=== PATIENT | male | born 1960 | race Two or more races ===

== ENCOUNTER 2018-07-15 19:06 | Inpatient (IN) | payer MEDICAID ==
[~2018-07-15] VITALS: Ht 167.6 cm; Wt 89.6 kg
[2018-07-15 19:11] VITALS: BP 124/75
[2018-07-15 19:45] LABS: HEMATOCRIT 22.3 % (42.0-52.0); HEMOGLOBIN 7.3 G/DL (14.2-18.0); MEAN CORPUSCULAR VOLUME 94 FL (80-99); PLATELET COUNT 52 K/UL (150-450); RED BLOOD COUNT 2.38 M/UL (4.70-6.10); RED CELL DISTRIBUTION WIDTH 13.7 % (11.6-14.8); WHITE BLOOD COUNT 15.6 K/UL (4.8-10.8)
[2018-07-15 19:50] LABS: INR 1.6 (0.9-1.1)
[2018-07-15 19:54] LABS: ANION GAP 13 mmol/L (5-15); BLOOD UREA NITROGEN 35 mg/dL (7-18); CARBON DIOXIDE 15 MMOL/L (21-32); CHLORIDE 106 MMOL/L (98-107); CREATININE 3.4 MG/DL (0.55-1.30); POTASSIUM 4.4 MMOL/L (3.5-5.1); SODIUM 134 MMOL/L (136-145)
[2018-07-15 20:04] LABS: ALANINE AMINOTRANSFERASE 32 U/L (12-78); ALBUMIN 1.3 G/DL (3.4-5.0); ALBUMIN/GLOBULIN RATIO 0.2 (1.0-2.7); ALKALINE PHOSPHATASE 120 U/L (46-116); ASPARTATE AMINO TRANSFERASE 105 U/L (15-37); BILIRUBIN,TOTAL 1.1 MG/DL (0.2-1.0); CREATINE KINASE 62 U/L (26-308)
[2018-07-15 20:06] LABS: BILIRUBIN,DIRECT 0.6 MG/DL (0.0-0.3)
[2018-07-15 20:07] LABS: AMMONIA < 10 umol/L (11-32)
--- NOTE | 2018-07-15 20:24 | Diagnostic Imaging Report ---
EXAM: XR Chest, 1 View CLINICAL HISTORY: ABD PAIN TECHNIQUE: Frontal view of the chest. COMPARISON: No relevant prior studies available. FINDINGS: Lungs: Hypoventilatory lungs. No focal consolidation. Pleural space: Unremarkable. No pneumothorax. Heart: Unremarkable. No cardiomegaly. Mediastinum: Unremarkable. Bones/joints: No acute osseous abnormality. IMPRESSION: No acute cardiopulmonary process.
--- NOTE | 2018-07-15 21:19 | Emergency Room Report ---
History of Present Illness General Chief Complaint: Abdominal Pain Source: Patient, EMS Present Illness HPI Patient presents with abdominal distention and discomfort. He has a history of ascites. He was last tapped one month ago. He is unsure where this was done. He denies any fevers or chills. Denies any vomiting or diarrhea. No melena, stools brown. H/O cirrhosis from alcohol. Pain in abdomen 7/10, diffuse, pressure, not radiate, constant. Some swelling in legs. No calf tenderness. No cough, sore throat, headache. Easy bruising. No seizures. No withdrawal symptoms. No dysuria or hematuria. He last drank alcohol earlier this morning. Allergies: Coded Allergies: No Known Allergies (Unverified , 07/15/18) Patient History Past Medical History: see triage record Social History: Reports: alcohol use Social History Narrative from home, born in [place] Reviewed Nursing Documentation: PMH: Agreed; PSxH: Agreed Nursing Documentation-PMH Hx Gastrointestinal Problems: Yes - CIRRHOSIS Review of Systems All Other Systems: negative except mentioned in HPI Physical Exam Vital Signs Date Time Temp Pulse Resp B/P (MAP) Pulse Ox O2 Delivery O2 Flow Rate FiO2 07/15/18 19:07 100.6 100 16 124/75 98 Room Air 100.6 Sp02 EP Interpretation: reviewed, normal General Appearance: alert, GCS 15, Chronically Ill Head: normocephalic Eyes: bilateral eye normal inspection, bilateral eye PERRL ENT: moist mucus membranes Neck: supple Respiratory: lungs clear, normal breath sounds Cardiovascular #1: regular rate, rhythm Cardiovascular #2: 2+ radial (R) Gastrointestinal: normal inspection, normal bowel sounds, soft, no mass, distended, other - fluid wave Genitourinary: no CVA tenderness Musculoskeletal: back normal, gait/station normal, normal range of motion Neurologic: alert, oriented x3, motor strength/tone normal, DTRs symmetric, sensory intact, speech normal Psychiatric: mood/affect normal Skin: warm/dry, other - sallo Medical Decision Making Diagnostic Impression: Primary Impression: Ascites Qualified Codes: K70.31 - Alcoholic cirrhosis of liver with ascites Additional Impressions: Fever Qualified Codes: R50.9 - Fever, unspecified Renal failure Qualified Codes: N17.9 - Acute kidney failure, unspecified Coagulopathy Cirrhosis Qualified Codes: K70.31 - Alcoholic cirrhosis of liver with ascites Anemia Qualified Codes: D64.9 - Anemia, unspecified Thrombocytopenia Alcohol abuse ER Course Patient presents with worsened ascites and fever. DDx: SBP, pneumonia, UTI, other source of infection. Evaluation with EKG, labs and cxr. Will need to have paracentesis if labs acceptable. Pepcid given. EKG no injury. CXR poor inspiration. Labs with anemia, coagulopathy, renal failure, elevated lactate, low bicarb, elevated LFTs. Low platelets. Pyuria. Ammonia nil. Alcohol 162. Type and Rh ordered. Antibiotics begun. Patient states pain resolved. With coagulopathy, consider correction before tap. Consider transfusion, though hemodynamically stable. Admit Dr. Kwame han. Laboratory Tests Test 07/15/18 19:24 07/15/18 21:49 White Blood Count 15.6 K/UL (4.8-10.8) H Red Blood Count 2.38 M/UL (4.70-6.10) L Hemoglobin 7.3 G/DL (14.2-18.0) L Hematocrit 22.3 % (42.0-52.0) L Mean Corpuscular Volume 94 FL (80-99) Mean Corpuscular Hemoglobin 30.9 PG (27.0-31.0) Mean Corpuscular Hemoglobin Concent 32.9 G/DL (32.0-36.0) Red Cell Distribution Width 13.7 % (11.6-14.8) Platelet Count 52 K/UL (150-450) L Mean Platelet Volume 6.2 FL (6.5-10.1) L Neutrophils (%) (Auto) % (45.0-75.0) Lymphocytes (%) (Auto) % (20.0-45.0) Monocytes (%) (Auto) % (1.0-10.0) Eosinophils (%) (Auto) % (0.0-3.0) Basophils (%) (Auto) % (0.0-2.0) Differential Total Cells Counted 100 Neutrophils % (Manual) 82 % (45-75) H Lymphocytes % (Manual) 15 % (20-45) L Monocytes % (Manual) 3 % (1-10) Eosinophils % (Manual) 0 % (0-3) Basophils % (Manual) 0 % (0-2) Band Neutrophils 0 % (0-8) Platelet Estimate Decreased L Platelet Morphology Normal Hypochromasia 1+ Prothrombin Time 16.1 SEC (9.30-11.50) H Prothrombin Time INR 1.6 (0.9-1.1) H PTT 38 SEC (23-33) H Sodium Level 134 MMOL/L (136-145) L Potassium Level 4.4 MMOL/L (3.5-5.1) Chloride Level 106 MMOL/L (98-107) Carbon Dioxide Level 15 MMOL/L (21-32) L Anion Gap 13 mmol/L (5-15) Blood Urea Nitrogen 35 mg/dL (7-18) H Creatinine 3.4 MG/DL (0.55-1.30) H Estimate Glomerular Filtration Rate 18.8 mL/min (>60) Glucose Level 109 MG/DL (74-106) H Lactic Acid Level 2.40 mmol/L (0.4-2.0) H Calcium Level 8.0 MG/DL (8.5-10.1) L Total Bilirubin 1.1 MG/DL (0.2-1.0) H Direct Bilirubin 0.6 MG/DL (0.0-0.3) H Aspartate Amino Transferase (AST) 105 U/L (15-37) H Alanine Aminotransferase (ALT) 32 U/L (12-78) Alkaline Phosphatase 120 U/L (46-116) H Ammonia < 10 umol/L (11-32) L Total Creatine Kinase 62 U/L (26-308) Troponin I 0.013 ng/mL (0.000-0.056) Total Protein 7.7 G/DL (6.4-8.2) Albumin 1.3 G/DL (3.4-5.0) L Globulin 6.4 g/dL Albumin/Globulin Ratio 0.2 (1.0-2.7) L Lipase 135 U/L (73-393) Serum Alcohol 162 mg/dL Urine Color Red Urine Appearance Turbid Urine pH 6.5 (4.5-8.0) Urine Specific [place] 1.015 (1.005-1.035) Urine Protein 4+ (NEGATIVE) H Urine Glucose (UA) Negative (NEGATIVE) Urine Ketones 1+ (NEGATIVE) H Urine Blood 5+ (NEGATIVE) H Urine Nitrite Negative (NEGATIVE) Urine Bilirubin Negative (NEGATIVE) Urine Urobilinogen Normal MG/DL (0.0-1.0) Urine Leukocyte Esterase 3+ (NEGATIVE) H Urine RBC Tntc /HPF (0 - 0) H Urine WBC 15-20 /HPF (0 - 0) H Urine Squamous Epithelial Cells Occasional /LPF Urine Bacteria Moderate /HPF (NONE) H Urine Opiates Screen Negative (NEGATIVE) Urine Barbiturates Screen Negative (NEGATIVE) Phencyclidine (PCP) Screen Negative (NEGATIVE) Urine Amphetamines Screen Negative (NEGATIVE) Urine Benzodiazepines Screen Negative (NEGATIVE) Urine Cocaine Screen Negative (NEGATIVE) Urine Marijuana (THC) Screen Negative (NEGATIVE) EKG Diagnostic Results Rate: normal Rhythm: NSR ST Segments: no acute changes Rhythm Strip Diag. Results EP Interpretation: yes Rhythm: NSR, no PVC's, no ectopy Chest X-Ray Diagnostic Results Chest X-Ray Diagnostic Results : Chest X-Ray Ordered: Yes # of Views/Limited/Complete: 1 View Indication: Other EP Interpretation: Yes Interpretation: no effusion, no pneumothorax, other - atelectasis Impression: Other Electronically Signed by: Electronically signed by Cory Zarate MD Last Vital Signs Date Time Temp Pulse Resp B/P (MAP) Pulse Ox O2 Delivery O2 Flow Rate FiO2 07/15/18 22:25 Room Air 07/15/18 19:11 100.6 16 124/75 98 100.6 07/15/18 19:07 100 Status: improved Disposition: ADMITTED INPATIENT Condition: Serious Referrals: NOT CHOSEN KEN/,REFERRING (PCP) Cory Zarate M.D. Jul 15, 2018 21:19
[2018-07-15] MEDS ORDERED: Cefepime HCl 1 GM in D5W 55 ML IVPB ONE (21:30)
[2018-07-15] MEDS ORDERED: Phytonadione 10 mg/mL 1ml amp SUBQ ONE (21:45)
[2018-07-15 22:03] LABS: APPEARANCE,URINE TURBID; BILIRUBIN, URINE NEGATIVE (NEGATIVE); GLUCOSE, URINE (UA) NEGATIVE (NEGATIVE); KETONES,URINE 1+ (NEGATIVE); LEUKOCYTE ESTERASE ,URINE 3+ (NEGATIVE); NITRITE,URINE NEGATIVE (NEGATIVE); PH,URINE 6.5 (4.5-8.0); PROTEIN,URINE 4+ (NEGATIVE); UROBILINOGEN,URINE NORMAL MG/DL (0.0-1.0)
[2018-07-15 22:08] LABS: COLOR,URINE RED
[2018-07-15] MEDS ORDERED: Acetaminophen 650 MG SUPP RECTAL PRN ×2 (22:15)
[2018-07-15] MEDS ORDERED: LORazepam Inj 2mg/ml 1ml IV PRN (22:15)
[2018-07-16] VITALS (10 sets, daily range): BP systolic 110–142; BP diastolic 54–85
[2018-07-16 07:58] LABS: INR 1.7 (0.9-1.1)
[2018-07-16 08:28] LABS: AMMONIA 62 umol/L (11-32)
[2018-07-16 08:30] LABS: ALANINE AMINOTRANSFERASE 22 U/L (12-78); ALBUMIN 0.9 G/DL (3.4-5.0); ALBUMIN/GLOBULIN RATIO 0.2 (1.0-2.7); ALKALINE PHOSPHATASE 76 U/L (46-116); AMYLASE 31 U/L (25-115); ANION GAP 13 mmol/L (5-15); ASPARTATE AMINO TRANSFERASE 71 U/L (15-37); BLOOD UREA NITROGEN 38 mg/dL (7-18); CALCIUM 7.5 MG/DL (8.5-10.1); CARBON DIOXIDE 14 MMOL/L (21-32); CHLORIDE 109 MMOL/L (98-107); CREATININE 3.5 MG/DL (0.55-1.30); POTASSIUM 4.9 MMOL/L (3.5-5.1); SODIUM 136 MMOL/L (136-145)
[2018-07-16] MEDS ORDERED: Pantoprazole Inj IV SCH ×2 (09:00→21:00)
[2018-07-16] MEDS ORDERED: Thiamine 100mg tab ORAL SCH (09:00)
[2018-07-16 09:28] LABS: HEMATOCRIT 18.6 % (42.0-52.0); MEAN CORPUSCULAR VOLUME 92 FL (80-99); PLATELET COUNT 27 K/UL (150-450); RED BLOOD COUNT 2.02 M/UL (4.70-6.10); RED CELL DISTRIBUTION WIDTH 13.6 % (11.6-14.8)
[2018-07-16 09:29] LABS: HEMOGLOBIN 5.9 G/DL (14.2-18.0)
[2018-07-16] MEDS ORDERED: Phytonadione 10 MG in D5W 55 ML IVPB ONE (10:00)
[2018-07-16] MEDS ORDERED: Sodium Bicarbonate 150 ML in D5W 1000ml 1,000 ML IV SCH ×5 (14:30→20:00)
[2018-07-16] MEDS: LORazepam Inj 2mg/ml 1ml IV SCH ×2 (14:41→18:09)
[2018-07-16] MEDS ORDERED: Acetaminophen 650 MG SUPP RECTAL PRN ×2 (20:03)
[2018-07-16] MEDS ORDERED: LORazepam Inj 2mg/ml 1ml IV PRN (20:04)
[2018-07-16] MEDS ORDERED: Cefepime HCl 1 GM in D5W 55 ML IVPB SCH (22:00)
[2018-07-16] MEDS: Cefepime HCl 1 GM in D5W 55 ML IVPB SCH (22:45)
[2018-07-16] MEDS: Pantoprazole Inj IV SCH (22:45)
[2018-07-17] VITALS: BP 143/91
[2018-07-17] MEDS: LORazepam Inj 2mg/ml 1ml IV SCH ×4 (00:29→17:59)
--- NOTE | 2018-07-17 00:45 | History and Physical Report ---
DATE OF ADMISSION: 07/15/2018 CHIEF COMPLAINT/REASON FOR HOSPITALIZATION: The patient with ascites, sepsis, and cirrhosis. HISTORY OF PRESENT ILLNESS: The patient is a heavy drinker, has had ascites, tapped about a month ago, presents with increasing ascites and abdominal pain. He is a poor historian. He has elevated alcohol level and he has been drinking lately beer. ALLERGIES: None known. PAST SURGICAL HISTORY: None. HABITS: He is a cigarette smoker and yjacmrgf-[id number] alcohol drinker. No drugs. REVIEW OF SYSTEMS: HEENT: Vision and hearing are good. ENDOCRINE: No known diabetes or thyroid disease. PULMONARY: No asthma or TB. CARDIAC: No angina or AL. GASTROINTESTINAL: See above. He may have had rectal bleeding, he is not sure. GENITOURINARY: He voids okay. He states he may have some chronic kidney problem. NEUROLOGIC: No seizures or CVA. PHYSICAL EXAMINATION: GENERAL: The patient is alert man, having some tremors and possible rigors. VITAL SIGNS: Temperature 100.7 degrees, pulse of 92, respirations 18, and blood pressure 127/68. HEENT: Oral mucosa is slightly dry. The sclerae are nonicteric. NECK: No adenopathy. LUNGS: Clear. HEART: Regular rhythm. Tachycardic. ABDOMEN: Shows moderate severe ascites and no focal tenderness. GENITOURINARY: Penis and testes normal. EXTREMITIES: Showed trace to 1+ edema. NEUROLOGIC: He is alert, responsive, and answers questions. No focal findings. There is some moderate tremor. LABORATORY AND DIAGNOSTIC DATA: Pertinent labs showed BUN 38, creatinine 3.5, and CO2 is 14. The ammonia is 62. Blood cultures showed Gram-negative rods. Repeat hemoglobin 5.9, hematocrit 18.6, and white count 10,000. Urine shows 15 to 20 white cells per high power field. IMPRESSION: 1. Cirrhosis with ascites. 2. Sepsis with Gram-negative rods, possible UTI, possible spontaneous bacterial peritonitis. 3. Kidney failure, possible acute kidney failure versus chronic, possibly secondary to sepsis. 4. Acidosis. 5. Severe anemia, possible GI bleed. No stools have been collected yet. PLAN: Orders have been given for all the above problems. He wishes DNR. Condition is very serious. Ed Puente M.D. DR: HEVER JOB#: [id number] CC:
[2018-07-17 04:00] VITALS: BP 114/77
[2018-07-17 05:38] LABS: HEMATOCRIT 25.6 % (42.0-52.0); HEMOGLOBIN 8.7 G/DL (14.2-18.0); MEAN CORPUSCULAR VOLUME 89 FL (80-99); PLATELET COUNT 38 K/UL (150-450); RED BLOOD COUNT 2.87 M/UL (4.70-6.10); RED CELL DISTRIBUTION WIDTH 13.7 % (11.6-14.8); WHITE BLOOD COUNT 7.6 K/UL (4.8-10.8)
[2018-07-17 05:48] LABS: INR 1.8 (0.9-1.1)
[2018-07-17 06:05] LABS: ALANINE AMINOTRANSFERASE 17 U/L (12-78); ALBUMIN/GLOBULIN RATIO 0.2 (1.0-2.7); ALKALINE PHOSPHATASE 73 U/L (46-116); ANION GAP 10 mmol/L (5-15); ASPARTATE AMINO TRANSFERASE 67 U/L (15-37); BILIRUBIN,TOTAL 2.3 MG/DL (0.2-1.0); BLOOD UREA NITROGEN 46 mg/dL (7-18); CALCIUM 7.4 MG/DL (8.5-10.1); CARBON DIOXIDE 17 MMOL/L (21-32); CHLORIDE 109 MMOL/L (98-107); CREATININE 4.2 MG/DL (0.55-1.30); POTASSIUM 4.7 MMOL/L (3.5-5.1); SODIUM 136 MMOL/L (136-145)
[2018-07-17 06:15] LABS: BILIRUBIN,DIRECT 1.1 MG/DL (0.0-0.3)
[2018-07-17 08:00] VITALS: BP 128/75
[2018-07-17] MEDS: Thiamine 100mg tab ORAL SCH (09:19)
[2018-07-17] MEDS: Pantoprazole Inj IV SCH ×2 (09:19→21:13)
--- NOTE | 2018-07-17 09:31 | Cardiology Report ---
APPROVED REPORT EKG Measurement Heart [id number] Normal sinus rhythm Septal infarct, age undetermined Abnormal ECG
[2018-07-17 12:00] VITALS: BP 113/68
--- NOTE | 2018-07-17 12:07 | General Progress Note ---
Assessment/Plan Assessment/Plan Assessment - EtOH cirrhosis - Ascites - Coagulopathy - encephalopathy - Renal failure Recommendations - abx - lactulose - diagnostic paracentesis - albumin - Trental - IVF - Follow labs Subjective Allergies: Coded Allergies: No Known Allergies (Unverified , 07/15/18) Objective Last 24 Hour Vital Signs Date Time Temp Pulse Resp B/P (MAP) Pulse Ox O2 Delivery O2 Flow Rate FiO2 07/17/18 09:00 Room Air 07/17/18 08:00 98.1 75 18 128/75 (92) 100 98.1 07/17/18 08:00 76 07/17/18 04:00 98.5 70 20 114/77 (89) 99 98.5 07/17/18 00:00 98.2 78 20 143/91 (108) 100 98.2 07/17/18 00:00 87 07/16/18 21:00 Room Air 07/16/18 20:00 98.2 84 20 140/85 (103) 100 98.2 07/16/18 20:00 82 07/16/18 19:00 98.2 84 20 142/85 (104) 100 98.2 07/16/18 17:20 98.3 88 20 123/81 (95) 98 98.3 07/16/18 16:50 98.4 96 20 121/80 (94) 98 98.4 07/16/18 16:35 98.7 102 20 118/81 (93) 98 98.7 07/16/18 16:00 98.9 104 20 117/80 (92) 99 98.9 07/16/18 13:50 100.2 07/16/18 12:51 100.7 Intake and Output 07/16/18 07/17/18 19:00 07:00 Intake Total 360 ml 589.1 ml Balance 360 ml 589.1 ml Intake Oral 360 ml 240 ml IV Total 349.1 ml # Voids 3 2 # Bowel Movements 1 Laboratory Tests 07/17/18 04:13: White Blood Count 7.6, Red Blood Count 2.87L, Hemoglobin 8.7#L, Hematocrit 25.6# L, Mean Corpuscular Volume 89, Mean Corpuscular Hemoglobin 30.3, Mean Corpuscular Hemoglobin Concent 34.0, Red Cell Distribution Width 13.7, Platelet Count 38L, Mean Platelet Volume 7.2, Neutrophils (%) (Auto) , Lymphocytes (%) ( Auto) , Monocytes (%) (Auto) , Eosinophils (%) (Auto) , Basophils (%) (Auto) , Differential Total Cells Counted 100, Neutrophils % (Manual) 90H, Lymphocytes % (Manual) 3L, Monocytes % (Manual) 5, Eosinophils % (Manual) 0, Basophils % ( Manual) 0, Band Neutrophils 2, Nucleated Red Blood Cells 1, Platelet Estimate DecreasedL, Platelet Morphology Normal, Anisocytosis 1+, Prothrombin Time 18.5H , Prothromb Time International Ratio 1.8H, Activated Partial Thromboplast Time 45H, Sodium Level 136, Potassium Level 4.7, Chloride Level 109H, Carbon Dioxide Level 17L, Anion Gap 10, Blood Urea Nitrogen 46H, Creatinine 4.2H, Estimat Glomerular Filtration Rate 14.8, Glucose Level 97, Calcium Level 7.4L, Total Bilirubin 2.3H, Direct Bilirubin 1.1H, Aspartate Amino Transf (AST/SGOT) 67H, Alanine Aminotransferase (ALT/SGPT) 17, Alkaline Phosphatase 73, Total Protein 5.6L, Albumin 1.0L, Globulin 4.6, Albumin/Globulin Ratio 0.2L Height (Feet): 5 Height (Inches): 6.00 Weight (Pounds): 160 Armando Junior MD Jul 17, 2018 12:07
[2018-07-17] MEDS ORDERED: D5 1/2NS 1,000 ML IV SCH (12:15)
[2018-07-17] MEDS: Lactulose 20gm/30ml UDC ORAL SCH ×2 (14:24→17:58)
[2018-07-17 15:58] VITALS: BP 126/79
--- NOTE | 2018-07-17 17:05 | Diagnostic Imaging Report ---
Indication: Alcohol cirrhosis. Elevated liver function tests and abdominal distention Technique: Grayscale and duplex Doppler imaging of the abdomen performed. Comparison: None Findings: There is a moderate degree of ascites present. There is nodularity of the liver surface demonstrated. The retroperitoneum structures including the pancreas, portions of the kidneys, abdominal aorta are not seen well on this study. There is evidence of a recanalized umbilical vein. Multiple gallstones are present. The spleen is enlarged measuring 15 cm. There is no hydronephrosis. There are cysts within the left kidney. The main portal vein is patent by Doppler examination. Gallstones noted. IMPRESSION: Chronic liver disease/cirrhosis with stigmata of portal hypertension including moderate ascites and splenomegaly, recanalized umbilical vein. Gallstones Multiple cysts within the left kidney. Portions of anatomy not well seen
--- NOTE | 2018-07-17 19:22 | General Progress Note ---
Assessment/Plan Problem List: (1) Pyelonephritis ICD Codes: N12 - Tubulo-interstitial nephritis, not specified as acute or chronic SNOMED: 85387737 (2) Alcohol withdrawal ICD Codes: F10.239 - Alcohol dependence with withdrawal, unspecified SNOMED: 827902418 (3) JARED (acute kidney injury) ICD Codes: N17.9 - Acute kidney failure, unspecified SNOMED: 54823863 (4) Cirrhosis ICD Codes: K74.60 - Unspecified cirrhosis of liver SNOMED: 66969656 Qualifiers: Qualified Codes: K70.31 - Alcoholic cirrhosis of liver with ascites (5) Alcohol abuse ICD Codes: F10.10 - Alcohol abuse, uncomplicated SNOMED: 11580425 (6) Thrombocytopenia ICD Codes: D69.6 - Thrombocytopenia, unspecified SNOMED: 425566283 (7) Anemia ICD Codes: D64.9 - Anemia, unspecified SNOMED: 634453095 Qualifiers: Qualified Codes: D64.9 - Anemia, unspecified (8) Ascites ICD Codes: R18.8 - Other ascites SNOMED: 846071276 Qualifiers: Qualified Codes: K70.31 - Alcoholic cirrhosis of liver with ascites (9) Coagulopathy ICD Codes: D68.9 - Coagulation defect, unspecified SNOMED: 87678015 Assessment/Plan continue cefeppime, paracentesis cancel due to thrombocytopenia, avoid fluid overload, high risk Subjective Constitutional: Reports: weakness HEENT: Reports: no symptoms Cardiovascular: Reports: no symptoms Respiratory: Reports: no symptoms Gastrointestinal/Abdominal: Reports: abdomen distended, abdominal pain Genitourinary: Reports: no symptoms Neurologic/Psychiatric: Reports: tremors, weakness Endocrine: Reports: no symptoms Hematologic/Lymphatic: Reports: anemia Allergies: Coded Allergies: No Known Allergies (Unverified , 07/15/18) Objective Last 24 Hour Vital Signs Date Time Temp Pulse Resp B/P (MAP) Pulse Ox O2 Delivery O2 Flow Rate FiO2 07/17/18 17:59 126/79 07/17/18 16:00 73 07/17/18 15:58 97.9 78 20 126/79 (95) 98 97.9 07/17/18 14:22 113/68 07/17/18 12:00 70 07/17/18 12:00 98.1 83 113/68 (83) 98.1 07/17/18 09:00 Room Air 8/27/18 08:00 98.1 75 18 128/75 (92) 100 98.1 07/17/18 08:00 76 07/17/18 04:00 98.5 70 20 114/77 (89) 99 98.5 07/17/18 00:00 98.2 78 20 143/91 (108) 100 98.2 07/17/18 00:00 87 07/16/18 21:00 Room Air 07/16/18 20:00 98.2 84 20 140/85 (103) 100 98.2 07/16/18 20:00 82 Intake and Output 07/16/18 07/17/18 19:00 07:00 Intake Total 360 ml 589.1 ml Balance 360 ml 589.1 ml Intake Oral 360 ml 240 ml IV Total 349.1 ml # Voids 3 2 # Bowel Movements 1 Laboratory Tests 07/17/18 04:13: White Blood Count 7.6, Red Blood Count 2.87L, Hemoglobin 8.7#L, Hematocrit 25.6# L, Mean Corpuscular Volume 89, Mean Corpuscular Hemoglobin 30.3, Mean Corpuscular Hemoglobin Concent 34.0, Red Cell Distribution Width 13.7, Platelet Count 38L, Mean Platelet Volume 7.2, Neutrophils (%) (Auto) , Lymphocytes (%) ( Auto) , Monocytes (%) (Auto) , Eosinophils (%) (Auto) , Basophils (%) (Auto) , Differential Total Cells Counted 100, Neutrophils % (Manual) 90H, Lymphocytes % (Manual) 3L, Monocytes % (Manual) 5, Eosinophils % (Manual) 0, Basophils % ( Manual) 0, Band Neutrophils 2, Nucleated Red Blood Cells 1, Platelet Estimate DecreasedL, Platelet Morphology Normal, Anisocytosis 1+, Prothrombin Time 18.5H , Prothromb Time International Ratio 1.8H, Activated Partial Thromboplast Time 45H, Sodium Level 136, Potassium Level 4.7, Chloride Level 109H, Carbon Dioxide Level 17L, Anion Gap 10, Blood Urea Nitrogen 46H, Creatinine 4.2H, Estimat Glomerular Filtration Rate 14.8, Glucose Level 97, Calcium Level 7.4L, Total Bilirubin 2.3H, Direct Bilirubin 1.1H, Aspartate Amino Transf (AST/SGOT) 67H, Alanine Aminotransferase (ALT/SGPT) 17, Alkaline Phosphatase 73, Total Protein 5.6L, Albumin 1.0L, Globulin 4.6, Albumin/Globulin Ratio 0.2L Height (Feet): 5 Height (Inches): 6.00 Weight (Pounds): 160 General Appearance: alert EENT: normal ENT inspection Neck: normal alignment Cardiovascular: normal rate, regular rhythm Respiratory/Chest: lungs clear Abdomen: distended Extremities: no calf tenderness Edema: no edema noted Arm (L), no edema noted Arm (R), no edema noted Leg (L), no edema noted Leg (R), no edema noted Pedal (L), no edema noted Pedal (R), no edema noted 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
[2018-07-17 20:00] VITALS: BP 138/81
[2018-07-17] MEDS: Cefepime HCl 1 GM in D5W 55 ML IVPB SCH (21:13)
--- NOTE | 2018-07-17 23:15 | Consultation ---
DATE OF CONSULTATION: 07/17/2018 GASTROLOGY CONSULTATION CHIEF COMPLAINT: I was asked to see this patient by Dr. Ed Puente for evaluation of alcoholic cirrhosis. HISTORY OF PRESENT ILLNESS: The patient is a 58-year-old man, who was admitted with ascites, cirrhosis, and sepsis. She is a poor historian and most of the information is only available from the chart. He has an extensive alcohol history. He has cirrhosis with ascites and hepatic encephalopathy and thrombocytopenia. He has a positive alcohol blood level on admission. He cannot give much information as he is a poor historian and he likely has some mild degree of hepatic encephalopathy as well. PAST MEDICAL HISTORY: History of cirrhosis, alcoholism, ascites, and coagulopathy. ALLERGIES: None. FAMILY HISTORY: Noncontributory. SOCIAL HISTORY: The patient smokes cigarettes and drinks alcohol. REVIEW OF SYSTEMS: Otherwise negative. PHYSICAL EXAMINATION: GENERAL: Debilitated man seen in his room. HEENT: Normocephalic and atraumatic. Sclerae anicteric. Oropharynx clear. NECK: Supple. CHEST: Anicteric. Oropharynx clear. NECK: Supple. CHEST: Clear to auscultation. CARDIOVASCULAR: Revealed a regular rate. ABDOMEN: Distended and obese with obvious ascites. EXTREMITIES: Revealed trace edema. NEUROLOGIC: He is nonverbal with some degree of encephalopathy. ASSESSMENT AND PLAN: 1. This patient presents with alcoholic cirrhosis and alcoholic hepatitis with ascites and thrombocytopenia. His prognosis is limited and poor with the above findings. I was also concerned about possible hepatorenal syndrome who has elevated creatinine. The patient is on a fluid trial as well as trental for alcoholic hepatitis since he is not a candidate for steroid treatment due to his initial leukocytosis infection. 2. Sample of ascites should be also obtained although he should continue his antibiotics. We will also begin treatment with lactulose and follow ammonia levels. Thank you for asking me to participate in the care of this patient. Armando Junior M.D. DR: LUC JOB#: [id number] CC: ROGER
[2018-07-18] VITALS: BP 137/85
[2018-07-18 04:00] VITALS: BP 130/84
[2018-07-18 05:06] LABS: HEMATOCRIT 25.4 % (42.0-52.0); HEMOGLOBIN 8.5 G/DL (14.2-18.0); MEAN CORPUSCULAR VOLUME 89 FL (80-99); PLATELET COUNT 32 K/UL (150-450); RED BLOOD COUNT 2.85 M/UL (4.70-6.10); RED CELL DISTRIBUTION WIDTH 13.6 % (11.6-14.8); WHITE BLOOD COUNT 5.7 K/UL (4.8-10.8)
[2018-07-18] MEDS: LORazepam Inj 2mg/ml 1ml IV SCH ×4 (05:24→18:00)
[2018-07-18 05:41] LABS: AMMONIA 32 umol/L (11-32)
[2018-07-18 05:44] LABS: ALANINE AMINOTRANSFERASE 18 U/L (12-78); ALBUMIN 1.8 G/DL (3.4-5.0); ALBUMIN/GLOBULIN RATIO 0.4 (1.0-2.7); ALKALINE PHOSPHATASE 68 U/L (46-116); ANION GAP 12 mmol/L (5-15); ASPARTATE AMINO TRANSFERASE 55 U/L (15-37); BLOOD UREA NITROGEN 51 mg/dL (7-18); CALCIUM 7.7 MG/DL (8.5-10.1); CARBON DIOXIDE 16 MMOL/L (21-32); CHLORIDE 108 MMOL/L (98-107); CREATININE 4.7 MG/DL (0.55-1.30); POTASSIUM 4.1 MMOL/L (3.5-5.1); SODIUM 136 MMOL/L (136-145)
[2018-07-18 05:57] LABS: BILIRUBIN,DIRECT 1.2 MG/DL (0.0-0.3)
[2018-07-18 06:00] LABS: INR 1.8 (0.9-1.1)
[2018-07-18 08:00] VITALS: BP_SYST 133; BP_SYST 138; BP_DIAS 62; BP_DIAS 86
[2018-07-18] MEDS: Pantoprazole Inj IV SCH ×2 (08:34→21:00)
[2018-07-18] MEDS: Lactulose 20gm/30ml UDC ORAL SCH ×4 (08:34→18:00)
[2018-07-18] MEDS: Thiamine 100mg tab ORAL SCH (08:39)
[2018-07-18 12:07] VITALS: BP 129/66
[2018-07-18 16:00] VITALS: BP 125/74
--- NOTE | 2018-07-18 18:27 | General Progress Note ---
Assessment/Plan Problem List: (1) Pyelonephritis ICD Codes: N12 - Tubulo-interstitial nephritis, not specified as acute or chronic SNOMED: 32601989 (2) Alcohol withdrawal ICD Codes: F10.239 - Alcohol dependence with withdrawal, unspecified SNOMED: 771783394 (3) JARED (acute kidney injury) ICD Codes: N17.9 - Acute kidney failure, unspecified SNOMED: 67546060 (4) Cirrhosis ICD Codes: K74.60 - Unspecified cirrhosis of liver SNOMED: 54384304 Qualifiers: Qualified Codes: K70.31 - Alcoholic cirrhosis of liver with ascites (5) Alcohol abuse ICD Codes: F10.10 - Alcohol abuse, uncomplicated SNOMED: 71194213 (6) Thrombocytopenia ICD Codes: D69.6 - Thrombocytopenia, unspecified SNOMED: 499464654 (7) Anemia ICD Codes: D64.9 - Anemia, unspecified SNOMED: 967253896 Qualifiers: Qualified Codes: D64.9 - Anemia, unspecified (8) Ascites ICD Codes: R18.8 - Other ascites SNOMED: 626120880 Qualifiers: Qualified Codes: K70.31 - Alcoholic cirrhosis of liver with ascites (9) Coagulopathy ICD Codes: D68.9 - Coagulation defect, unspecified SNOMED: 60909287 (10) Sepsis ICD Codes: A41.9 - Sepsis, unspecified organism SNOMED: 24836697 (11) E coli bacteremia ICD Codes: R78.81 - Bacteremia SNOMED: 36509019, 040345553401 Assessment/Plan cefzolin per cultures, paracentesis cancel due to thrombocytopenia, avoid fluid overload, high risk mobilize, reduce ativan Subjective Constitutional: Reports: weakness HEENT: Reports: no symptoms Cardiovascular: Reports: no symptoms Respiratory: Reports: no symptoms Gastrointestinal/Abdominal: Reports: abdomen distended Genitourinary: Reports: no symptoms Neurologic/Psychiatric: Reports: tremors Endocrine: Reports: no symptoms Hematologic/Lymphatic: Reports: anemia Allergies: Coded Allergies: No Known Allergies (Unverified , 07/15/18) Objective Last 24 Hour Vital Signs Date Time Temp Pulse Resp B/P (MAP) Pulse Ox O2 Delivery O2 Flow Rate FiO2 07/18/18 18:24 125/74 07/18/18 16:00 98.2 78 18 125/74 (91) 97 98.2 07/18/18 12:45 129/66 07/18/18 12:07 98.3 90 19 129/66 (87) 96 98.3 07/18/18 12:00 76 07/18/18 09:00 Room Air 07/18/18 08:39 138/86 07/18/18 08:12 88 07/18/18 08:00 98.1 77 20 138/86 (103) 94 98.1 07/18/18 04:09 71 07/18/18 04:00 98.1 75 20 130/84 (99) 99 98.1 07/18/18 00:00 77 07/18/18 00:00 98.1 80 20 137/85 (102) 99 98.1 07/17/18 21:00 Room Air 07/17/18 20:00 98.6 70 20 138/81 (100) 98 98.6 07/17/18 20:00 70 Intake and Output 07/17/18 07/18/18 19:00 07:00 Intake Total 950 ml 220 ml Balance 950 ml 220 ml Intake Oral 400 ml 220 ml IV Total 550 ml # Voids 5 # Bowel Movements 5 Laboratory Tests 07/17/18 19:15: Stool Occult Blood Negative 07/18/18 03:51: White Blood Count 5.7, Red Blood Count 2.85L, Hemoglobin 8.5L, Hematocrit 25.4L , Mean Corpuscular Volume 89, Mean Corpuscular Hemoglobin 29.8, Mean Corpuscular Hemoglobin Concent 33.5, Red Cell Distribution Width 13.6, Platelet Count 32L, Mean Platelet Volume 7.6, Neutrophils (%) (Auto) , Lymphocytes (%) ( Auto) , Monocytes (%) (Auto) , Eosinophils (%) (Auto) , Basophils (%) (Auto) , Differential Total Cells Counted 100, Neutrophils % (Manual) 88H, Lymphocytes % (Manual) 6L, Monocytes % (Manual) 3, Eosinophils % (Manual) 0, Basophils % ( Manual) 0, Band Neutrophils 3, Platelet Estimate DecreasedL, Platelet Morphology Normal, Red Blood Cell Morphology Normal, Prothrombin Time 18.7H, Prothromb Time International Ratio 1.8H, Sodium Level 136, Potassium Level 4.1, Chloride Level 108H, Carbon Dioxide Level 16L, Anion Gap 12, Blood Urea Nitrogen 51H, Creatinine 4.7H, Estimat Glomerular Filtration Rate 13.0, Glucose Level 106, Calcium Level 7.7L, Total Bilirubin 2.0H, Direct Bilirubin 1.2H, Aspartate Amino Transf (AST/SGOT) 55H, Alanine Aminotransferase (ALT/SGPT) 18, Alkaline Phosphatase 68, Ammonia 32, Total Protein 6.0L, Albumin 1.8L, Globulin 4.2, Albumin/Globulin Ratio 0.4L Height (Feet): 5 Height (Inches): 6.00 Weight (Pounds): 160 General Appearance: no apparent distress, alert EENT: normal ENT inspection Neck: normal alignment, supple Cardiovascular: normal rate, regular rhythm Respiratory/Chest: lungs clear Abdomen: 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
[2018-07-18] MEDS: Sodium Bicarbonate 650mg Tab ORAL SCH (19:43)
[2018-07-18 20:00] VITALS: BP 120/73
--- NOTE | 2018-07-18 21:03 | General Progress Note ---
Assessment/Plan Assessment/Plan Assessment - Concerned about likely hepatorenal syndrome - acute renal failure is also on differential, but Na<20 - If HRS, likely due to infection/sepsis on presentation - paracentesis as this point not likely helpful (not tender and normal WBC) and may likely worsen HRS or ATN - EtOH cirrhosis - Ascites - Coagulopathy - encephalopathy - improved - Grave prognosis Recommendations - would discuss code status - begin octreotide/midodrine x 48 hour trial - extend albumin another 48 hours - abx - change lactulose to xifaxan - Trental - for component of EtOH hepatitis - Follow closely - consider transfer to nearby liver transplant center Subjective Allergies: Coded Allergies: No Known Allergies (Unverified , 07/15/18) Subjective More awake today OOB and sitting no abd pain, but does complain of distention declines to take lactulose due to side effects labs noted and d/w admitting MD UOP at 50 cc for today so far Objective Last 24 Hour Vital Signs Date Time Temp Pulse Resp B/P (MAP) Pulse Ox O2 Delivery O2 Flow Rate FiO2 07/18/18 18:24 125/74 07/18/18 16:00 98.2 78 18 125/74 (91) 97 98.2 07/18/18 12:45 129/66 07/18/18 12:07 98.3 90 19 129/66 (87) 96 98.3 07/18/18 12:00 76 07/18/18 09:00 Room Air 07/18/18 08:39 138/86 07/18/18 08:12 88 07/18/18 08:00 98.1 77 20 138/86 (103) 94 98.1 07/18/18 04:09 71 07/18/18 04:00 98.1 75 20 130/84 (99) 99 98.1 07/18/18 00:00 77 07/18/18 00:00 98.1 80 20 137/85 (102) 99 98.1 07/17/18 21:00 Room Air Intake and Output 07/17/18 07/18/18 19:00 07:00 Intake Total 950 ml 220 ml Balance 950 ml 220 ml Intake Oral 400 ml 220 ml IV Total 550 ml # Voids 5 # Bowel Movements 5 Laboratory Tests 07/18/18 03:51: White Blood Count 5.7, Red Blood Count 2.85L, Hemoglobin 8.5L, Hematocrit 25.4L , Mean Corpuscular Volume 89, Mean Corpuscular Hemoglobin 29.8, Mean Corpuscular Hemoglobin Concent 33.5, Red Cell Distribution Width 13.6, Platelet Count 32L, Mean Platelet Volume 7.6, Neutrophils (%) (Auto) , Lymphocytes (%) ( Auto) , Monocytes (%) (Auto) , Eosinophils (%) (Auto) , Basophils (%) (Auto) , Differential Total Cells Counted 100, Neutrophils % (Manual) 88H, Lymphocytes % (Manual) 6L, Monocytes % (Manual) 3, Eosinophils % (Manual) 0, Basophils % ( Manual) 0, Band Neutrophils 3, Platelet Estimate DecreasedL, Platelet Morphology Normal, Red Blood Cell Morphology Normal, Prothrombin Time 18.7H, Prothromb Time International Ratio 1.8H, Sodium Level 136, Potassium Level 4.1, Chloride Level 108H, Carbon Dioxide Level 16L, Anion Gap 12, Blood Urea Nitrogen 51H, Creatinine 4.7H, Estimat Glomerular Filtration Rate 13.0, Glucose Level 106, Calcium Level 7.7L, Total Bilirubin 2.0H, Direct Bilirubin 1.2H, Aspartate Amino Transf (AST/SGOT) 55H, Alanine Aminotransferase (ALT/SGPT) 18, Alkaline Phosphatase 68, Ammonia 32, Total Protein 6.0L, Albumin 1.8L, Globulin 4.2, Albumin/Globulin Ratio 0.4L Height (Feet): 5 Height (Inches): 6.00 Weight (Pounds): 160 Objective man in chair distended abdomen NCAT supple CTA RRR abd distended, non tender trace edema neuro: alert and conversant Armando Junior MD Jul 18, 2018 21:03
[2018-07-18] MEDS: SandoSTATIN 100mcg Inj SUBQ SCH (21:38)
[2018-07-18 22:08] LABS: ANION GAP 13 mmol/L (5-15); BLOOD UREA NITROGEN 53 mg/dL (7-18); CALCIUM 8.4 MG/DL (8.5-10.1); CARBON DIOXIDE 16 MMOL/L (21-32); CHLORIDE 108 MMOL/L (98-107); POTASSIUM 3.6 MMOL/L (3.5-5.1); SODIUM 137 MMOL/L (136-145)
[2018-07-19] VITALS: BP 146/71
[2018-07-19] MEDS: Magnesium Chloride w/Calcium Tab ORAL SCH ×3 (00:28→17:30)
[2018-07-19 04:00] VITALS: BP 133/65
[2018-07-19] MEDS: SandoSTATIN 100mcg Inj SUBQ SCH ×3 (05:46→21:45)
[2018-07-19 07:25] LABS: HEMATOCRIT 28.3 % (42.0-52.0); HEMOGLOBIN 9.3 G/DL (14.2-18.0); MEAN CORPUSCULAR VOLUME 90 FL (80-99); PLATELET COUNT 32 K/UL (150-450); RED BLOOD COUNT 3.13 M/UL (4.70-6.10); WHITE BLOOD COUNT 7.4 K/UL (4.8-10.8)
[2018-07-19 07:37] LABS: ALANINE AMINOTRANSFERASE 18 U/L (12-78); ALBUMIN 2.8 G/DL (3.4-5.0); ALBUMIN/GLOBULIN RATIO 0.7 (1.0-2.7); ALKALINE PHOSPHATASE 65 U/L (46-116); ANION GAP 13 mmol/L (5-15); ASPARTATE AMINO TRANSFERASE 41 U/L (15-37); BILIRUBIN,TOTAL 2.5 MG/DL (0.2-1.0); BLOOD UREA NITROGEN 53 mg/dL (7-18); CALCIUM 8.5 MG/DL (8.5-10.1); CARBON DIOXIDE 17 MMOL/L (21-32); CHLORIDE 107 MMOL/L (98-107); CREATININE 5.2 MG/DL (0.55-1.30); POTASSIUM 3.9 MMOL/L (3.5-5.1); SODIUM 137 MMOL/L (136-145)
[2018-07-19 07:38] LABS: BILIRUBIN,DIRECT 1.3 MG/DL (0.0-0.3)
[2018-07-19 08:00] VITALS: BP 137/74
[2018-07-19] MEDS: Sodium Bicarbonate 650mg Tab ORAL SCH ×3 (10:43→17:31)
[2018-07-19] MEDS: Thiamine 100mg tab ORAL SCH (10:43)
[2018-07-19] MEDS: Pantoprazole Inj IV SCH ×2 (10:43→21:45)
[2018-07-19 12:00] VITALS: BP 120/69
[2018-07-19 16:00] VITALS: BP 126/65
--- NOTE | 2018-07-19 16:33 | General Progress Note ---
Assessment/Plan Problem List: (1) Pyelonephritis ICD Codes: N12 - Tubulo-interstitial nephritis, not specified as acute or chronic SNOMED: 90513176 (2) Alcohol withdrawal ICD Codes: F10.239 - Alcohol dependence with withdrawal, unspecified SNOMED: 279389652 (3) JARED (acute kidney injury) ICD Codes: N17.9 - Acute kidney failure, unspecified SNOMED: 84488439 (4) Cirrhosis ICD Codes: K74.60 - Unspecified cirrhosis of liver SNOMED: 18136676 Qualifiers: Qualified Codes: K70.31 - Alcoholic cirrhosis of liver with ascites (5) Alcohol abuse ICD Codes: F10.10 - Alcohol abuse, uncomplicated SNOMED: 94010718 (6) Thrombocytopenia ICD Codes: D69.6 - Thrombocytopenia, unspecified SNOMED: 676470798 (7) Anemia ICD Codes: D64.9 - Anemia, unspecified SNOMED: 644933694 Qualifiers: Qualified Codes: D64.9 - Anemia, unspecified (8) Ascites ICD Codes: R18.8 - Other ascites SNOMED: 735026016 Qualifiers: Qualified Codes: K70.31 - Alcoholic cirrhosis of liver with ascites (9) Coagulopathy ICD Codes: D68.9 - Coagulation defect, unspecified SNOMED: 68553960 (10) Sepsis ICD Codes: A41.9 - Sepsis, unspecified organism SNOMED: 31252640 (11) E coli bacteremia ICD Codes: R78.81 - Bacteremia SNOMED: 73020707, 193272124260 Assessment/Plan cefzolin per cultures, paracentesis cancel due to thrombocytopenia, avoid fluid overload, high risk mobilize, reduce ativan, atn vs hepatorenal very grave prognosis d/w patient Subjective Constitutional: Reports: weakness HEENT: Reports: no symptoms Cardiovascular: Reports: no symptoms Respiratory: Reports: no symptoms Gastrointestinal/Abdominal: Reports: abdomen distended Genitourinary: Reports: no symptoms Neurologic/Psychiatric: Reports: no symptoms Endocrine: Reports: no symptoms Hematologic/Lymphatic: Reports: anemia Allergies: Coded Allergies: No Known Allergies (Unverified , 07/15/18) Objective Last 24 Hour Vital Signs Date Time Temp Pulse Resp B/P (MAP) Pulse Ox O2 Delivery O2 Flow Rate FiO2 07/19/18 13:24 51 07/19/18 13:07 137/74 07/19/18 12:00 97.2 55 18 120/69 (86) 95 97.2 07/19/18 12:00 Nasal Cannula 2.0 07/19/18 10:43 137/74 07/19/18 09:10 52 07/19/18 08:00 Nasal Cannula 2.0 07/19/18 08:00 97.0 70 18 137/74 (95) 100 97.0 07/19/18 04:00 Nasal Cannula 2.0 07/19/18 04:00 98.4 72 20 133/65 (87) 100 98.4 07/19/18 04:00 82 07/19/18 02:00 82 07/19/18 00:00 Room Air 07/19/18 00:00 98.1 70 20 146/71 (96) 100 98.1 07/18/18 21:00 Room Air 07/18/18 20:00 97.9 72 20 120/73 (89) 97 97.9 07/18/18 18:24 125/74 Intake and Output 07/18/18 07/19/18 19:00 07:00 Intake Total 1080 ml 600 ml Output Total 50 ml Balance 1080 ml 550 ml Intake Oral 1080 ml 500 ml IV Total 100 ml Output Urine Total 50 ml # Voids 7 # Bowel Movements 7 3 Laboratory Tests 07/18/18 21:50: Sodium Level 137, Potassium Level 3.6, Chloride Level 108H, Carbon Dioxide Level 16L, Anion Gap 13, Blood Urea Nitrogen 53H, Creatinine 5.0H, Estimat Glomerular Filtration Rate 12.1, Glucose Level 106, Calcium Level 8.4L, Magnesium Level 1.5L 07/19/18 05:50: Sodium Level 137, Potassium Level 3.9, Chloride Level 107, Carbon Dioxide Level 17L, Anion Gap 13, Blood Urea Nitrogen 53H, Creatinine 5.2H, Estimat Glomerular Filtration Rate 11.5, Glucose Level 106, Calcium Level 8.5, White Blood Count 7.4, Red Blood Count 3.13L, Hemoglobin 9.3L, Hematocrit 28.3L, Mean Corpuscular Volume 90, Mean Corpuscular Hemoglobin 29.7, Mean Corpuscular Hemoglobin Concent 32.8, Red Cell Distribution Width 14.0, Platelet Count 32L, Mean Platelet Volume 7.6, Neutrophils (%) (Auto) , Lymphocytes (%) (Auto) , Monocytes (%) (Auto) , Eosinophils (%) (Auto) , Basophils (%) (Auto) , Differential Total Cells Counted 100, Neutrophils % (Manual) 88H, Lymphocytes % (Manual) 4L, Monocytes % (Manual) 4, Eosinophils % (Manual) 0, Basophils % ( Manual) 0, Band Neutrophils 4, Platelet Estimate DecreasedL, Platelet Morphology Normal, Anisocytosis 1+, Prothrombin Time 19.5H, Prothromb Time International Ratio 2.0H, Total Bilirubin 2.5H, Direct Bilirubin 1.3H, Aspartate Amino Transf (AST/SGOT) 41H, Alanine Aminotransferase (ALT/SGPT) 18, Alkaline Phosphatase 65, Ammonia < 10L, Total Protein 6.6, Albumin 2.8L, Globulin 3.8, Albumin/Globulin Ratio 0.7L Height (Feet): 5 Height (Inches): 6.00 Weight (Pounds): 200 General Appearance: no apparent distress, alert EENT: normal ENT inspection Neck: normal alignment Cardiovascular: normal rate Respiratory/Chest: lungs clear Abdomen: distended Edema: no edema noted Arm (L), no edema noted Arm (R), no edema noted Leg (L), no edema noted Leg (R), no edema noted Pedal (L), no edema noted Pedal (R), no edema noted 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
[2018-07-19 20:00] VITALS: BP 115/55
--- NOTE | 2018-07-19 23:03 | General Progress Note ---
Assessment/Plan Assessment/Plan Assessment - likely hepatorenal syndrome - acute renal failure is also on differential, but Na<20 x 2 - HRS, likely due to infection/sepsis on presentation - paracentesis as this point not likely helpful (not tender and normal WBC) - EtOH cirrhosis - Ascites - Coagulopathy - worsening - encephalopathy - improved - Grave prognosis - nearly a terminal outcome Recommendations - Agree with DNR - vitamin K trial - octreotide/midodrine trial - albumin - abx - xifaxan - Trental - for component of EtOH hepatitis - Follow closely - HD per Renal - consider transfer to nearby liver transplant center Subjective Genitourinary: Denies: discharge Allergies: Coded Allergies: No Known Allergies (Unverified , 07/15/18) Subjective denies new complaints now anuric Objective Last 24 Hour Vital Signs Date Time Temp Pulse Resp B/P (MAP) Pulse Ox O2 Delivery O2 Flow Rate FiO2 07/19/18 20:00 97.7 56 18 115/55 (75) 97 97.7 07/19/18 19:51 Nasal Cannula 2.0 07/19/18 17:31 126/65 07/19/18 17:01 54 07/19/18 16:00 96.6 50 18 126/65 (85) 97 96.6 07/19/18 16:00 Nasal Cannula 2.0 07/19/18 13:24 51 07/19/18 13:07 137/74 07/19/18 12:00 97.2 55 18 120/69 (86) 95 97.2 07/19/18 12:00 Nasal Cannula 2.0 07/19/18 10:43 137/74 07/19/18 09:10 52 07/19/18 08:00 Nasal Cannula 2.0 07/19/18 08:00 97.0 70 18 137/74 (95) 100 97.0 07/19/18 04:00 Nasal Cannula 2.0 07/19/18 04:00 98.4 72 20 133/65 (87) 100 98.4 07/19/18 04:00 82 07/19/18 02:00 82 07/19/18 00:00 Room Air 07/19/18 00:00 98.1 70 20 146/71 (96) 100 98.1 Intake and Output 07/18/18 07/19/18 19:00 07:00 Intake Total 1080 ml 600 ml Output Total 50 ml Balance 1080 ml 550 ml Intake Oral 1080 ml 500 ml IV Total 100 ml Output Urine Total 50 ml # Voids 7 # Bowel Movements 7 3 Laboratory Tests 07/19/18 05:50: White Blood Count 7.4, Red Blood Count 3.13L, Hemoglobin 9.3L, Hematocrit 28.3L , Mean Corpuscular Volume 90, Mean Corpuscular Hemoglobin 29.7, Mean Corpuscular Hemoglobin Concent 32.8, Red Cell Distribution Width 14.0, Platelet Count 32L, Mean Platelet Volume 7.6, Neutrophils (%) (Auto) , Lymphocytes (%) ( Auto) , Monocytes (%) (Auto) , Eosinophils (%) (Auto) , Basophils (%) (Auto) , Differential Total Cells Counted 100, Neutrophils % (Manual) 88H, Lymphocytes % (Manual) 4L, Monocytes % (Manual) 4, Eosinophils % (Manual) 0, Basophils % ( Manual) 0, Band Neutrophils 4, Platelet Estimate DecreasedL, Platelet Morphology Normal, Anisocytosis 1+, Prothrombin Time 19.5H, Prothromb Time International Ratio 2.0H, Sodium Level 137, Potassium Level 3.9, Chloride Level 107, Carbon Dioxide Level 17L, Anion Gap 13, Blood Urea Nitrogen 53H, Creatinine 5.2H, Estimat Glomerular Filtration Rate 11.5, Glucose Level 106, Calcium Level 8.5, Total Bilirubin 2.5H, Direct Bilirubin 1.3H, Aspartate Amino Transf (AST/SGOT) 41H, Alanine Aminotransferase (ALT/SGPT) 18, Alkaline Phosphatase 65, Ammonia < 10L, Total Protein 6.6, Albumin 2.8L, Globulin 3.8, Albumin/Globulin Ratio 0.7L 07/19/18 20:30: Urine Random Sodium < 20L Height (Feet): 5 Height (Inches): 6.00 Weight (Pounds): 200 Objective man in chair distended abdomen NCAT supple CTA RRR abd distended, non tender trace edema neuro: interactive Armando Junior MD Jul 19, 2018 23:03
[2018-07-19] MEDS ORDERED: Phytonadione 10 mg/mL 1ml amp SUBQ SCH (23:45)
[2018-07-20] VITALS (7 sets, daily range): BP systolic 109–144; BP diastolic 52–79
[2018-07-20 04:35] LABS: HEMATOCRIT 25.6 % (42.0-52.0); HEMOGLOBIN 8.6 G/DL (14.2-18.0); MEAN CORPUSCULAR VOLUME 90 FL (80-99); PLATELET COUNT 34 K/UL (150-450); RED BLOOD COUNT 2.84 M/UL (4.70-6.10); RED CELL DISTRIBUTION WIDTH 14.3 % (11.6-14.8); WHITE BLOOD COUNT 9.5 K/UL (4.8-10.8)
[2018-07-20 04:44] LABS: INR 2.3 (0.9-1.1)
[2018-07-20 05:07] LABS: ALANINE AMINOTRANSFERASE 15 U/L (12-78); ALBUMIN 3.2 G/DL (3.4-5.0); ALKALINE PHOSPHATASE 55 U/L (46-116); ANION GAP 13 mmol/L (5-15); ASPARTATE AMINO TRANSFERASE 29 U/L (15-37); BILIRUBIN,TOTAL 2.5 MG/DL (0.2-1.0); BLOOD UREA NITROGEN 57 mg/dL (7-18); CALCIUM 8.5 MG/DL (8.5-10.1); CARBON DIOXIDE 18 MMOL/L (21-32); CHLORIDE 107 MMOL/L (98-107); CREATININE 5.7 MG/DL (0.55-1.30); POTASSIUM 3.5 MMOL/L (3.5-5.1); SODIUM 138 MMOL/L (136-145)
[2018-07-20 05:16] LABS: BILIRUBIN,DIRECT 1.1 MG/DL (0.0-0.3)
[2018-07-20] MEDS: SandoSTATIN 100mcg Inj SUBQ SCH ×3 (05:58→21:44)
[2018-07-20] MEDS: Thiamine 100mg tab ORAL SCH (08:50)
[2018-07-20] MEDS: Magnesium Chloride w/Calcium Tab ORAL SCH ×2 (08:50→17:35)
[2018-07-20] MEDS: Sodium Bicarbonate 650mg Tab ORAL SCH ×3 (08:50→17:35)
[2018-07-20] MEDS: Pantoprazole Inj IV SCH ×2 (08:50→21:44)
--- NOTE | 2018-07-20 08:59 | General Progress Note ---
Assessment/Plan Assessment/Plan Assessment - likely hepatorenal syndrome - acute renal failure is also on differential, but Na<20 x 2 - HRS, likely due to infection/sepsis on presentation - paracentesis as this point not likely helpful (not tender and normal WBC) - EtOH cirrhosis - Ascites - Coagulopathy - worsening - encephalopathy - improved - Grave prognosis - nearly a terminal outcome Recommendations - Agree with DNR - vitamin K trial - octreotide/midodrine trial - albumin - abx - xifaxan - Trental - for component of EtOH hepatitis - Follow closely - HD per Renal - consider transfer to nearby liver transplant center - will call family Subjective Allergies: Coded Allergies: No Known Allergies (Unverified , 07/15/18) Subjective c/o mild difficulty with breathing advised re grave prognosis advised life expectancy low patient OK'd for me to call his family re likely terminal status Objective Last 24 Hour Vital Signs Date Time Temp Pulse Resp B/P (MAP) Pulse Ox O2 Delivery O2 Flow Rate FiO2 07/20/18 08:50 120/56 07/20/18 04:00 Nasal Cannula 2.0 07/20/18 04:00 97.9 55 18 110/66 (81) 98 97.9 07/20/18 00:00 98.1 56 18 109/52 (71) 96 98.1 07/20/18 00:00 Nasal Cannula 2.0 07/20/18 00:00 48 07/19/18 20:00 97.7 56 18 115/55 (75) 97 97.7 07/19/18 19:51 Nasal Cannula 2.0 07/19/18 17:31 126/65 07/19/18 17:01 54 07/19/18 16:00 96.6 50 18 126/65 (85) 97 96.6 07/19/18 16:00 Nasal Cannula 2.0 07/19/18 13:24 51 07/19/18 13:07 137/74 07/19/18 12:00 97.2 55 18 120/69 (86) 95 97.2 07/19/18 12:00 Nasal Cannula 2.0 07/19/18 10:43 137/74 07/19/18 09:10 52 Intake and Output 07/19/18 07/20/18 19:00 07:00 Intake Total 400 ml 100 ml Output Total 0 ml 100 ml Balance 400 ml 0 ml Intake Oral 200 ml IV Total 200 ml 100 ml Output Urine Total 0 ml 100 ml # Voids 3 2 # Bowel Movements 3 4 Laboratory Tests 07/19/18 20:30: Urine Random Sodium < 20L 07/20/18 03:44: White Blood Count 9.5, Red Blood Count 2.84L, Hemoglobin 8.6L, Hematocrit 25.6L , Mean Corpuscular Volume 90, Mean Corpuscular Hemoglobin 30.3, Mean Corpuscular Hemoglobin Concent 33.5, Red Cell Distribution Width 14.3, Platelet Count 34L, Mean Platelet Volume 7.4, Neutrophils (%) (Auto) , Lymphocytes (%) ( Auto) , Monocytes (%) (Auto) , Eosinophils (%) (Auto) , Basophils (%) (Auto) , Differential Total Cells Counted 100, Neutrophils % (Manual) 77H, Lymphocytes % (Manual) 15L, Monocytes % (Manual) 8, Eosinophils % (Manual) 0, Basophils % ( Manual) 0, Band Neutrophils 0, Platelet Estimate DecreasedL, Platelet Morphology Normal, Hypochromasia 2+, Anisocytosis 1+, Spherocytes 1+, Prothrombin Time 23.0H, Prothromb Time International Ratio 2.3H, Sodium Level 138, Potassium Level 3.5, Chloride Level 107, Carbon Dioxide Level 18L, Anion Gap 13, Blood Urea Nitrogen 57H, Creatinine 5.7H, Estimat Glomerular Filtration Rate 10.4, Glucose Level 120H, Calcium Level 8.5, Magnesium Level 1.5L, Total Bilirubin 2.5H, Direct Bilirubin 1.1H, Aspartate Amino Transf (AST/SGOT) 29, Alanine Aminotransferase (ALT/SGPT) 15, Alkaline Phosphatase 55, Ammonia 23, Total Protein 6.4, Albumin 3.2L, Globulin 3.2, Albumin/Globulin Ratio 1.0 Height (Feet): 5 Height (Inches): 6.00 Weight (Pounds): 204 Objective man in chair distended abdomen NCAT supple CTA RRR abd distended, non tender trace edema neuro: interactive Armando Junior MD Jul 20, 2018 08:59
--- NOTE | 2018-07-20 12:48 | Nephrology Progress Note ---
Assessment/Plan Problem List: (1) Pyelonephritis (2) Alcohol withdrawal (3) JARED (acute kidney injury) (4) Cirrhosis (5) Alcohol abuse (6) Thrombocytopenia (7) Anemia (8) Ascites (9) Coagulopathy (10) Sepsis (11) E coli bacteremia Plan weak, no distress, does not allow accurate collection of urine but oliguric, dialysis might not improve survival or quality of life--observe with currenct rx for sepsis and hrs Subjective Constitutional: Reports: weakness HEENT: Reports: no symptoms Genitourinary: Reports: no symptoms Neurologic/Psychiatric: Reports: no symptoms Objective Objective Last 24 Hour Vital Signs Date Time Temp Pulse Resp B/P (MAP) Pulse Ox O2 Delivery O2 Flow Rate FiO2 07/20/18 12:00 97.9 48 19 119/55 (76) 100 97.9 07/20/18 12:00 Room Air 07/20/18 12:00 48 07/20/18 09:13 44 07/20/18 08:50 120/56 07/20/18 08:00 Room Air 07/20/18 08:00 97.9 46 16 120/56 (77) 100 97.9 07/20/18 04:00 Nasal Cannula 2.0 07/20/18 04:00 97.9 55 18 110/66 (81) 98 97.9 07/20/18 00:00 98.1 56 18 109/52 (71) 96 98.1 07/20/18 00:00 Nasal Cannula 2.0 07/20/18 00:00 48 07/19/18 20:00 97.7 56 18 115/55 (75) 97 97.7 07/19/18 19:51 Nasal Cannula 2.0 07/19/18 17:31 126/65 07/19/18 17:01 54 07/19/18 16:00 96.6 50 18 126/65 (85) 97 96.6 07/19/18 16:00 Nasal Cannula 2.0 07/19/18 13:24 51 07/19/18 13:07 137/74 Intake and Output 07/19/18 07/20/18 19:00 07:00 Intake Total 400 ml 100 ml Output Total 0 ml 100 ml Balance 400 ml 0 ml Intake Oral 200 ml IV Total 200 ml 100 ml Output Urine Total 0 ml 100 ml # Voids 3 2 # Bowel Movements 3 4 Laboratory Tests 07/19/18 20:30: Urine Random Sodium < 20L 07/20/18 03:44: White Blood Count 9.5, Red Blood Count 2.84L, Hemoglobin 8.6L, Hematocrit 25.6L , Mean Corpuscular Volume 90, Mean Corpuscular Hemoglobin 30.3, Mean Corpuscular Hemoglobin Concent 33.5, Red Cell Distribution Width 14.3, Platelet Count 34L, Mean Platelet Volume 7.4, Neutrophils (%) (Auto) , Lymphocytes (%) ( Auto) , Monocytes (%) (Auto) , Eosinophils (%) (Auto) , Basophils (%) (Auto) , Differential Total Cells Counted 100, Neutrophils % (Manual) 77H, Lymphocytes % (Manual) 15L, Monocytes % (Manual) 8, Eosinophils % (Manual) 0, Basophils % ( Manual) 0, Band Neutrophils 0, Platelet Estimate DecreasedL, Platelet Morphology Normal, Hypochromasia 2+, Anisocytosis 1+, Spherocytes 1+, Prothrombin Time 23.0H, Prothromb Time International Ratio 2.3H, Sodium Level 138, Potassium Level 3.5, Chloride Level 107, Carbon Dioxide Level 18L, Anion Gap 13, Blood Urea Nitrogen 57H, Creatinine 5.7H, Estimat Glomerular Filtration Rate 10.4, Glucose Level 120H, Calcium Level 8.5, Magnesium Level 1.5L, Total Bilirubin 2.5H, Direct Bilirubin 1.1H, Aspartate Amino Transf (AST/SGOT) 29, Alanine Aminotransferase (ALT/SGPT) 15, Alkaline Phosphatase 55, Ammonia 23, Total Protein 6.4, Albumin 3.2L, Globulin 3.2, Albumin/Globulin Ratio 1.0 Height (Feet): 5 Height (Inches): 6.00 Weight (Pounds): 204 General Appearance: no apparent distress, alert EENT: normal ENT inspection Neck: non-tender Cardiovascular: normal rate Respiratory/Chest: lungs clear Abdomen: distended Extremities: non-tender 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
[2018-07-20] MEDS: traMADol 50mg tab ORAL PRN (19:33)
[2018-07-21 04:00] VITALS: BP 148/83
[2018-07-21 06:50] LABS: INR 2.4 (0.9-1.1)
[2018-07-21 06:51] LABS: HEMATOCRIT 23.1 % (42.0-52.0); MEAN CORPUSCULAR VOLUME 91 FL (80-99); PLATELET COUNT 38 K/UL (150-450); RED BLOOD COUNT 2.55 M/UL (4.70-6.10); RED CELL DISTRIBUTION WIDTH 14.7 % (11.6-14.8); WHITE BLOOD COUNT 9.8 K/UL (4.8-10.8)
[2018-07-21 07:33] LABS: AMMONIA < 10 umol/L (11-32)
[2018-07-21 07:38] LABS: ALANINE AMINOTRANSFERASE 12 U/L (12-78); ALBUMIN 3.3 G/DL (3.4-5.0); ALBUMIN/GLOBULIN RATIO 1.1 (1.0-2.7); ALKALINE PHOSPHATASE 47 U/L (46-116); ANION GAP 14 mmol/L (5-15); ASPARTATE AMINO TRANSFERASE 24 U/L (15-37); BILIRUBIN,TOTAL 2.9 MG/DL (0.2-1.0); BLOOD UREA NITROGEN 59 mg/dL (7-18); CALCIUM 8.7 MG/DL (8.5-10.1); CARBON DIOXIDE 17 MMOL/L (21-32); CHLORIDE 108 MMOL/L (98-107); CREATININE 6.1 MG/DL (0.55-1.30); POTASSIUM 3.3 MMOL/L (3.5-5.1); SODIUM 138 MMOL/L (136-145)
[2018-07-21 07:40] LABS: BILIRUBIN,DIRECT 1.4 MG/DL (0.0-0.3)
[2018-07-21 08:00] VITALS: BP 142/73
--- NOTE | 2018-07-21 08:10 | General Progress Note ---
Assessment/Plan Problem List: (1) Pyelonephritis ICD Codes: N12 - Tubulo-interstitial nephritis, not specified as acute or chronic SNOMED: 88111368 (2) Alcohol withdrawal ICD Codes: F10.239 - Alcohol dependence with withdrawal, unspecified SNOMED: 543084964 (3) JARED (acute kidney injury) ICD Codes: N17.9 - Acute kidney failure, unspecified SNOMED: 03379884 (4) Cirrhosis ICD Codes: K74.60 - Unspecified cirrhosis of liver SNOMED: 80226996 Qualifiers: Qualified Codes: K70.31 - Alcoholic cirrhosis of liver with ascites (5) Alcohol abuse ICD Codes: F10.10 - Alcohol abuse, uncomplicated SNOMED: 63509532 (6) Thrombocytopenia ICD Codes: D69.6 - Thrombocytopenia, unspecified SNOMED: 154700859 (7) Anemia ICD Codes: D64.9 - Anemia, unspecified SNOMED: 577665372 Qualifiers: Qualified Codes: D64.9 - Anemia, unspecified (8) Ascites ICD Codes: R18.8 - Other ascites SNOMED: 522817121 Qualifiers: Qualified Codes: K70.31 - Alcoholic cirrhosis of liver with ascites (9) Coagulopathy ICD Codes: D68.9 - Coagulation defect, unspecified SNOMED: 82545534 (10) Sepsis ICD Codes: A41.9 - Sepsis, unspecified organism SNOMED: 97885090 (11) E coli bacteremia ICD Codes: R78.81 - Bacteremia SNOMED: 68876090, 752962717170 Assessment/Plan cefzolin per cultures, paracentesis cancel due to thrombocytopenia, avoid fluid overload, high risk mobilize, reduce ativan, atn vs hepatorenal very grave prognosis d/w patient dialysis might not improve survival Subjective Constitutional: Reports: weakness HEENT: Reports: no symptoms Cardiovascular: Reports: no symptoms Respiratory: Reports: no symptoms Gastrointestinal/Abdominal: Reports: abdomen distended Genitourinary: Reports: no symptoms Neurologic/Psychiatric: Reports: no symptoms Endocrine: Reports: no symptoms Hematologic/Lymphatic: Reports: no symptoms Allergies: Coded Allergies: No Known Allergies (Unverified , 07/15/18) Objective Last 24 Hour Vital Signs Date Time Temp Pulse Resp B/P (MAP) Pulse Ox O2 Delivery O2 Flow Rate FiO2 07/21/18 04:00 96.8 47 20 148/83 (104) 100 96.8 8/31/18 04:00 Room Air 07/21/18 04:00 46 07/21/18 00:00 Room Air 07/21/18 00:00 47 07/20/18 23:50 97.7 45 20 144/79 (100) 98 97.7 07/20/18 20:00 97.5 48 16 138/62 (87) 96 97.5 07/20/18 20:00 Room Air 07/20/18 20:00 48 07/20/18 17:35 127/68 07/20/18 16:00 Room Air 07/20/18 16:00 97.3 50 20 121/78 (92) 100 97.3 07/20/18 16:00 46 07/20/18 13:30 120/65 07/20/18 12:00 97.9 48 19 119/55 (76) 100 97.9 07/20/18 12:00 Room Air 07/20/18 12:00 48 07/20/18 09:13 44 07/20/18 08:50 120/56 Intake and Output 07/20/18 07/21/18 19:00 07:00 Intake Total 800 ml 820 ml Balance 800 ml 820 ml Intake Oral 600 ml 720 ml IV Total 200 ml 100 ml # Voids 2 2 Laboratory Tests 07/21/18 05:02: White Blood Count 9.8, Red Blood Count 2.55L, Hemoglobin 8.0L, Hematocrit 23.1L , Mean Corpuscular Volume 91, Mean Corpuscular Hemoglobin 31.4H, Mean Corpuscular Hemoglobin Concent 34.6, Red Cell Distribution Width 14.7, Platelet Count 38L, Mean Platelet Volume 8.1, Neutrophils (%) (Auto) , Lymphocytes (%) ( Auto) , Monocytes (%) (Auto) , Eosinophils (%) (Auto) , Basophils (%) (Auto) , Neutrophils % (Manual) [Pending], Lymphocytes % (Manual) [Pending], Platelet Estimate [Pending], Platelet Morphology [Pending], Prothrombin Time 23.9H, Prothromb Time International Ratio 2.4H, Sodium Level 138, Potassium Level 3.3L , Chloride Level 108H, Carbon Dioxide Level 17L, Anion Gap 14, Blood Urea Nitrogen 59H, Creatinine 6.1H, Estimat Glomerular Filtration Rate 9.6, Glucose Level 110H, Calcium Level 8.7, Total Bilirubin 2.9H, Direct Bilirubin 1.4H, Aspartate Amino Transf (AST/SGOT) 24, Alanine Aminotransferase (ALT/SGPT) 12, Alkaline Phosphatase 47, Ammonia < 10L, Total Protein 6.3L, Albumin 3.3L, Globulin 3.0, Albumin/Globulin Ratio 1.1 Height (Feet): 5 Height (Inches): 6.00 Weight (Pounds): 204 General Appearance: no apparent distress, alert EENT: normal ENT inspection Neck: normal alignment Cardiovascular: normal rate Respiratory/Chest: lungs clear Abdomen: distended Extremities: other - no edema 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
[2018-07-21] MEDS: Thiamine 100mg tab ORAL SCH (08:24)
[2018-07-21] MEDS: Magnesium Chloride w/Calcium Tab ORAL SCH ×2 (08:24→17:25)
[2018-07-21] MEDS: Sodium Bicarbonate 650mg Tab ORAL SCH ×3 (08:24→17:25)
[2018-07-21] MEDS: Pantoprazole Inj IV SCH ×2 (08:24→20:25)
--- NOTE | 2018-07-21 11:43 | General Progress Note ---
Assessment/Plan Problem List: (1) Alcohol abuse ICD Codes: F10.10 - Alcohol abuse, uncomplicated SNOMED: 32770132 (2) Thrombocytopenia ICD Codes: D69.6 - Thrombocytopenia, unspecified SNOMED: 165094859 (3) Anemia ICD Codes: D64.9 - Anemia, unspecified SNOMED: 102436272 Qualifiers: Qualified Codes: D64.9 - Anemia, unspecified (4) Ascites ICD Codes: R18.8 - Other ascites SNOMED: 152227673 Qualifiers: Qualified Codes: K70.31 - Alcoholic cirrhosis of liver with ascites (5) Coagulopathy ICD Codes: D68.9 - Coagulation defect, unspecified SNOMED: 02398206 (6) Cirrhosis ICD Codes: K74.60 - Unspecified cirrhosis of liver SNOMED: 13015420 Qualifiers: Qualified Codes: K70.31 - Alcoholic cirrhosis of liver with ascites Assessment/Plan Assessment - likely hepatorenal syndrome - acute renal failure is also on differential, but Na<20 x 2 - HRS, likely due to infection/sepsis on presentation - paracentesis as this point not likely helpful (not tender and normal WBC) - EtOH cirrhosis - Ascites - Coagulopathy - worsening - encephalopathy - improved - Grave prognosis - nearly a terminal outcome Recommendations - Agree with DNR - vitamin K trial - xifaxan - Trental - for component of EtOH hepatitis - Follow closely - HD per Renal Subjective Allergies: Coded Allergies: No Known Allergies (Unverified , 07/15/18) Objective Last 24 Hour Vital Signs Date Time Temp Pulse Resp B/P (MAP) Pulse Ox O2 Delivery O2 Flow Rate FiO2 07/21/18 08:28 142/73 07/21/18 08:00 97.3 51 18 142/73 (96) 99 97.3 07/21/18 08:00 Room Air 07/21/18 08:00 64 07/21/18 04:00 96.8 47 20 148/83 (104) 100 96.8 07/21/18 04:00 Room Air 07/21/18 04:00 46 07/21/18 00:00 Room Air 07/21/18 00:00 47 07/20/18 23:50 97.7 45 20 144/79 (100) 98 97.7 07/20/18 20:00 97.5 48 16 138/62 (87) 96 97.5 07/20/18 20:00 Room Air 07/20/18 20:00 48 07/20/18 17:35 127/68 07/20/18 16:00 Room Air 07/20/18 16:00 97.3 50 20 121/78 (92) 100 97.3 07/20/18 16:00 46 07/20/18 13:30 120/65 07/20/18 12:00 97.9 48 19 119/55 (76) 100 97.9 07/20/18 12:00 Room Air 07/20/18 12:00 48 Intake and Output 07/20/18 07/21/18 19:00 07:00 Intake Total 800 ml 820 ml Balance 800 ml 820 ml Intake Oral 600 ml 720 ml IV Total 200 ml 100 ml # Voids 2 2 Laboratory Tests 07/21/18 05:02: White Blood Count 9.8, Red Blood Count 2.55L, Hemoglobin 8.0L, Hematocrit 23.1L , Mean Corpuscular Volume 91, Mean Corpuscular Hemoglobin 31.4H, Mean Corpuscular Hemoglobin Concent 34.6, Red Cell Distribution Width 14.7, Platelet Count 38L, Mean Platelet Volume 8.1, Neutrophils (%) (Auto) , Lymphocytes (%) ( Auto) , Monocytes (%) (Auto) , Eosinophils (%) (Auto) , Basophils (%) (Auto) , Differential Total Cells Counted 100, Neutrophils % (Manual) 84H, Lymphocytes % (Manual) 8L, Monocytes % (Manual) 8, Eosinophils % (Manual) 0, Basophils % ( Manual) 0, Band Neutrophils 0, Platelet Estimate DecreasedL, Platelet Morphology Normal, Anisocytosis 2+, Prothrombin Time 23.9H, Prothromb Time International Ratio 2.4H, Sodium Level 138, Potassium Level 3.3L, Chloride Level 108H, Carbon Dioxide Level 17L, Anion Gap 14, Blood Urea Nitrogen 59H, Creatinine 6.1H, Estimat Glomerular Filtration Rate 9.6, Glucose Level 110H, Calcium Level 8.7, Total Bilirubin 2.9H, Direct Bilirubin 1.4H, Aspartate Amino Transf (AST/SGOT) 24, Alanine Aminotransferase (ALT/SGPT) 12, Alkaline Phosphatase 47, Ammonia < 10L, Total Protein 6.3L, Albumin 3.3L, Globulin 3.0, Albumin/Globulin Ratio 1.1 Height (Feet): 5 Height (Inches): 6.00 Weight (Pounds): 204 General Appearance: no apparent distress EENT: normal ENT inspection Neck: supple Cardiovascular: normal rate Respiratory/Chest: decreased breath sounds Abdomen: normal bowel sounds, non tender, soft, distended Extremities: non-tender Chuy Escobar MD Jul 21, 2018 11:43
[2018-07-21 12:00] VITALS: BP 149/72
[2018-07-21 16:00] VITALS: BP 149/75
[2018-07-21 20:00] VITALS: BP 141/89
[2018-07-21] MEDS: traMADol 50mg tab ORAL PRN (20:38)
[2018-07-22] VITALS: BP 131/60
[2018-07-22 03:53] LABS: HEMATOCRIT 23.5 % (42.0-52.0); HEMOGLOBIN 7.8 G/DL (14.2-18.0); MEAN CORPUSCULAR VOLUME 90 FL (80-99); PLATELET COUNT 35 K/UL (150-450); RED CELL DISTRIBUTION WIDTH 14.9 % (11.6-14.8); WHITE BLOOD COUNT 6.4 K/UL (4.8-10.8)
[2018-07-22 04:00] VITALS: BP 141/89
[2018-07-22 04:23] LABS: ALANINE AMINOTRANSFERASE 12 U/L (12-78); ALBUMIN 2.7 G/DL (3.4-5.0); ALBUMIN/GLOBULIN RATIO 0.9 (1.0-2.7); ALKALINE PHOSPHATASE 46 U/L (46-116); ANION GAP 12 mmol/L (5-15); ASPARTATE AMINO TRANSFERASE 25 U/L (15-37); BLOOD UREA NITROGEN 62 mg/dL (7-18); CALCIUM 8.2 MG/DL (8.5-10.1); CARBON DIOXIDE 17 MMOL/L (21-32); CHLORIDE 109 MMOL/L (98-107); CREATININE 6.4 MG/DL (0.55-1.30); POTASSIUM 3.5 MMOL/L (3.5-5.1); SODIUM 138 MMOL/L (136-145)
[2018-07-22 04:24] LABS: BILIRUBIN,DIRECT 1.6 MG/DL (0.0-0.3)
[2018-07-22] MEDS: traMADol 50mg tab ORAL PRN (04:41)
[2018-07-22 08:00] VITALS: BP 140/76
[2018-07-22] MEDS: Pantoprazole Inj IV SCH ×2 (08:51→21:11)
[2018-07-22] MEDS: Sodium Bicarbonate 650mg Tab ORAL SCH ×3 (09:00→18:36)
[2018-07-22] MEDS: Magnesium Chloride w/Calcium Tab ORAL SCH ×2 (09:00→18:36)
[2018-07-22] MEDS: Thiamine 100mg tab ORAL SCH (09:00)
--- NOTE | 2018-07-22 11:29 | General Progress Note ---
Assessment/Plan Problem List: (1) Alcohol abuse ICD Codes: F10.10 - Alcohol abuse, uncomplicated SNOMED: 76035706 (2) Thrombocytopenia ICD Codes: D69.6 - Thrombocytopenia, unspecified SNOMED: 019505346 (3) Anemia ICD Codes: D64.9 - Anemia, unspecified SNOMED: 642220300 Qualifiers: Qualified Codes: D64.9 - Anemia, unspecified (4) Ascites ICD Codes: R18.8 - Other ascites SNOMED: 651484836 Qualifiers: Qualified Codes: K70.31 - Alcoholic cirrhosis of liver with ascites (5) Coagulopathy ICD Codes: D68.9 - Coagulation defect, unspecified SNOMED: 28799968 (6) Cirrhosis ICD Codes: K74.60 - Unspecified cirrhosis of liver SNOMED: 01311165 Qualifiers: Qualified Codes: K70.31 - Alcoholic cirrhosis of liver with ascites Assessment/Plan Assessment - likely hepatorenal syndrome - acute renal failure is also on differential, but Na<20 x 2 - HRS, likely due to infection/sepsis on presentation - paracentesis as this point not likely helpful (not tender and normal WBC) - EtOH cirrhosis - Ascites - Coagulopathy - worsening - encephalopathy - improved - Grave prognosis - nearly a terminal outcome Recommendations - Agree with DNR - xifaxan - Trental - for component of EtOH hepatitis - Follow closely - HD per Renal -advance diet Subjective ROS Limited/Unobtainable: Yes Allergies: Coded Allergies: No Known Allergies (Unverified , 07/15/18) Subjective wants to eat Objective Last 24 Hour Vital Signs Date Time Temp Pulse Resp B/P (MAP) Pulse Ox O2 Delivery O2 Flow Rate FiO2 07/22/18 08:00 59 07/22/18 08:00 96.8 60 20 140/76 (97) 98 96.8 07/22/18 08:00 Room Air 07/22/18 04:00 97.2 58 20 141/89 (106) 97 97.2 07/22/18 04:00 64 07/22/18 04:00 Room Air 07/22/18 00:00 97.2 60 16 131/60 (83) 97 97.2 07/22/18 00:00 Room Air 07/22/18 00:00 58 07/21/18 20:00 Nasal Cannula 2.0 07/21/18 20:00 44 07/21/18 20:00 97.3 50 18 141/89 (106) 100 97.3 07/21/18 17:25 149/75 07/21/18 16:00 Room Air 07/21/18 16:00 97.7 53 19 149/75 (99) 100 97.7 07/21/18 16:00 43 07/21/18 13:03 149/72 07/21/18 12:00 46 07/21/18 12:00 Room Air 07/21/18 12:00 97.4 50 20 149/72 (97) 100 97.4 Intake and Output 07/21/18 07/22/18 19:00 07:00 Intake Total 1250 ml 240 ml Balance 1250 ml 240 ml Intake Oral 350 ml 240 ml IV Total 900 ml # Voids 1 # Bowel Movements 1 Laboratory Tests 07/22/18 03:30: White Blood Count 6.4, Red Blood Count 2.60L, Hemoglobin 7.8L, Hematocrit 23.5L , Mean Corpuscular Volume 90, Mean Corpuscular Hemoglobin 30.0, Mean Corpuscular Hemoglobin Concent 33.2, Red Cell Distribution Width 14.9H, Platelet Count 35L, Mean Platelet Volume 8.7, Neutrophils (%) (Auto) , Lymphocytes (%) (Auto) , Monocytes (%) (Auto) , Eosinophils (%) (Auto) , Basophils (%) (Auto) , Differential Total Cells Counted 100, Neutrophils % ( Manual) 84H, Lymphocytes % (Manual) 12L, Monocytes % (Manual) 2, Eosinophils % ( Manual) 2, Basophils % (Manual) 0, Band Neutrophils 0, Platelet Estimate DecreasedL, Platelet Morphology Normal, Hypochromasia 3+, Anisocytosis 1+, Spherocytes 2+, Sodium Level 138, Potassium Level 3.5, Chloride Level 109H, Carbon Dioxide Level 17L, Anion Gap 12, Blood Urea Nitrogen 62H, Creatinine 6.4H , Estimat Glomerular Filtration Rate 9.1, Glucose Level 90, Calcium Level 8.2L, Total Bilirubin 3.0H, Direct Bilirubin 1.6H, Aspartate Amino Transf (AST/SGOT) 25, Alanine Aminotransferase (ALT/SGPT) 12, Alkaline Phosphatase 46, Total Protein 5.7L, Albumin 2.7L, Globulin 3.0, Albumin/Globulin Ratio 0.9L Height (Feet): 5 Height (Inches): 6.00 Weight (Pounds): 201 General Appearance: alert EENT: normal ENT inspection Neck: supple Cardiovascular: normal rate Respiratory/Chest: decreased breath sounds Abdomen: normal bowel sounds, non tender, soft Extremities: non-tender Chuy Escobar MD Jul 22, 2018 11:29
[2018-07-22 12:00] VITALS: BP 135/75
[2018-07-22 16:00] VITALS: BP 148/85
[2018-07-22] MEDS ORDERED: NS 275ml ONE (16:37)
[2018-07-22] MEDS ORDERED: Tubing IV Secondary IV ONE (16:37)
[2018-07-22 20:00] VITALS: BP 151/88
[2018-07-23] VITALS: BP 137/77
[2018-07-23 04:00] VITALS: BP 135/68
[2018-07-23 04:40] LABS: HEMOGLOBIN 7.6 G/DL (14.2-18.0); MEAN CORPUSCULAR VOLUME 91 FL (80-99); PLATELET COUNT 32 K/UL (150-450); RED BLOOD COUNT 2.52 M/UL (4.70-6.10); RED CELL DISTRIBUTION WIDTH 15.1 % (11.6-14.8); WHITE BLOOD COUNT 4.9 K/UL (4.8-10.8)
[2018-07-23 04:53] LABS: ANION GAP 11 mmol/L (5-15); BLOOD UREA NITROGEN 62 mg/dL (7-18); CALCIUM 8.5 MG/DL (8.5-10.1); CARBON DIOXIDE 19 MMOL/L (21-32); CHLORIDE 108 MMOL/L (98-107); CREATININE 6.6 MG/DL (0.55-1.30); POTASSIUM 3.3 MMOL/L (3.5-5.1); SODIUM 138 MMOL/L (136-145)
[2018-07-23 08:00] VITALS: BP 115/64
[2018-07-23] MEDS: Sodium Bicarbonate 650mg Tab ORAL SCH ×3 (08:40→17:11)
[2018-07-23] MEDS: Thiamine 100mg tab ORAL SCH (08:40)
[2018-07-23] MEDS: Magnesium Chloride w/Calcium Tab ORAL SCH ×2 (08:40→17:11)
[2018-07-23] MEDS: Pantoprazole Inj IV SCH (08:41)
[2018-07-23] MEDS ORDERED: D5 1/2NS 1000ml IV ONE (08:41)
--- NOTE | 2018-07-23 08:44 | General Progress Note ---
Assessment/Plan Problem List: (1) Alcohol abuse ICD Codes: F10.10 - Alcohol abuse, uncomplicated SNOMED: 74571918 (2) Thrombocytopenia ICD Codes: D69.6 - Thrombocytopenia, unspecified SNOMED: 758393863 (3) Anemia ICD Codes: D64.9 - Anemia, unspecified SNOMED: 474018722 Qualifiers: Qualified Codes: D64.9 - Anemia, unspecified (4) Ascites ICD Codes: R18.8 - Other ascites SNOMED: 973403322 Qualifiers: Qualified Codes: K70.31 - Alcoholic cirrhosis of liver with ascites (5) Coagulopathy ICD Codes: D68.9 - Coagulation defect, unspecified SNOMED: 97084955 (6) Cirrhosis ICD Codes: K74.60 - Unspecified cirrhosis of liver SNOMED: 48149982 Qualifiers: Qualified Codes: K70.31 - Alcoholic cirrhosis of liver with ascites Assessment/Plan Assessment - likely hepatorenal syndrome - acute renal failure is also on differential, but Na<20 x 2 - HRS, likely due to infection/sepsis on presentation - paracentesis as this point not likely helpful (not tender and normal WBC) - EtOH cirrhosis - Ascites - Coagulopathy - worsening - encephalopathy - improved - Grave prognosis - nearly a terminal outcome Recommendations - Agree with DNR - xifaxan - Trental - for component of EtOH hepatitis - Follow closely - HD per Renal -push po Subjective Allergies: Coded Allergies: No Known Allergies (Unverified , 07/15/18) Subjective poor po intake Objective Last 24 Hour Vital Signs Date Time Temp Pulse Resp B/P (MAP) Pulse Ox O2 Delivery O2 Flow Rate FiO2 07/23/18 08:40 115/64 07/23/18 08:00 97.5 56 18 115/64 (81) 98 97.5 07/23/18 04:00 97.9 53 18 135/68 (90) 97 97.9 07/23/18 04:00 Room Air 07/23/18 04:00 56 07/23/18 00:00 Room Air 07/23/18 00:00 97.7 51 18 137/77 (97) 96 97.7 07/23/18 00:00 53 07/22/18 20:00 97.7 58 20 151/88 (109) 98 97.7 07/22/18 20:00 51 07/22/18 20:00 Room Air 07/22/18 18:36 148/85 07/22/18 16:00 96.8 61 18 148/85 (106) 97 96.8 07/22/18 16:00 Room Air 07/22/18 15:53 54 07/22/18 13:49 135/75 07/22/18 12:00 55 07/22/18 12:00 Room Air 07/22/18 12:00 96.9 59 18 135/75 (95) 98 96.9 Intake and Output 07/22/18 07/23/18 19:00 07:00 Intake Total 420 ml 200 ml Balance 420 ml 200 ml Intake Oral 420 ml 200 ml # Voids 2 Laboratory Tests 07/23/18 03:50: White Blood Count 4.9, Red Blood Count 2.52L, Hemoglobin 7.6L, Hematocrit 23.0L , Mean Corpuscular Volume 91, Mean Corpuscular Hemoglobin 30.2, Mean Corpuscular Hemoglobin Concent 33.2, Red Cell Distribution Width 15.1H, Platelet Count 32L, Mean Platelet Volume 7.2, Neutrophils (%) (Auto) , Lymphocytes (%) (Auto) , Monocytes (%) (Auto) , Eosinophils (%) (Auto) , Basophils (%) (Auto) , Neutrophils % (Manual) [Pending], Lymphocytes % (Manual) [Pending], Platelet Estimate [Pending], Platelet Morphology [Pending], Sodium Level 138, Potassium Level 3.3L, Chloride Level 108H, Carbon Dioxide Level 19L, Anion Gap 11, Blood Urea Nitrogen 62H, Creatinine 6.6H, Estimat Glomerular Filtration Rate 8.8, Glucose Level 108H, Calcium Level 8.5 Height (Feet): 5 Height (Inches): 6.00 Weight (Pounds): 191 General Appearance: no apparent distress EENT: normal ENT inspection Neck: supple Cardiovascular: normal rate Respiratory/Chest: decreased breath sounds Abdomen: soft, hypoactive bowel sounds, distended Extremities: non-tender Chuy Escobar MD Jul 23, 2018 08:44
--- NOTE | 2018-07-23 10:38 | General Progress Note ---
Assessment/Plan Status Narrative 1) ALCOHOLIC CIRRHOSIS DECOMPENSATED 2) JARED DUE TO HRS 3) NO CHF 4) THROMBOCYTOPENIA 5) HYPOKALEMIA PLAN; NOT A CANDIDATE FOR LIVER TXP, HENCE NO CANDIDATE FOR DIALYSIS REPLETE K Subjective Allergies: Coded Allergies: No Known Allergies (Unverified , 07/15/18) Subjective hE HAS DISTENDED ABDOMEN, HE DRANK UP TO THIS ADMISSION, APPETITE IS POOR Objective Last 24 Hour Vital Signs Date Time Temp Pulse Resp B/P (MAP) Pulse Ox O2 Delivery O2 Flow Rate FiO2 07/23/18 08:40 115/64 07/23/18 08:00 97.5 56 18 115/64 (81) 98 97.5 07/23/18 08:00 62 07/23/18 08:00 Room Air 07/23/18 04:00 97.9 53 18 135/68 (90) 97 97.9 07/23/18 04:00 Room Air 07/23/18 04:00 56 07/23/18 00:00 Room Air 07/23/18 00:00 97.7 51 18 137/77 (97) 96 97.7 07/23/18 00:00 53 07/22/18 20:00 97.7 58 20 151/88 (109) 98 97.7 07/22/18 20:00 51 07/22/18 20:00 Room Air 07/22/18 18:36 148/85 07/22/18 16:00 96.8 61 18 148/85 (106) 97 96.8 07/22/18 16:00 Room Air 07/22/18 15:53 54 07/22/18 13:49 135/75 07/22/18 12:00 55 07/22/18 12:00 Room Air 07/22/18 12:00 96.9 59 18 135/75 (95) 98 96.9 Intake and Output 07/22/18 07/23/18 19:00 07:00 Intake Total 420 ml 200 ml Balance 420 ml 200 ml Intake Oral 420 ml 200 ml # Voids 2 Laboratory Tests 07/23/18 03:50: White Blood Count 4.9, Red Blood Count 2.52L, Hemoglobin 7.6L, Hematocrit 23.0L , Mean Corpuscular Volume 91, Mean Corpuscular Hemoglobin 30.2, Mean Corpuscular Hemoglobin Concent 33.2, Red Cell Distribution Width 15.1H, Platelet Count 32L, Mean Platelet Volume 7.2, Neutrophils (%) (Auto) , Lymphocytes (%) (Auto) , Monocytes (%) (Auto) , Eosinophils (%) (Auto) , Basophils (%) (Auto) , Differential Total Cells Counted 100, Neutrophils % ( Manual) 72, Lymphocytes % (Manual) 21, Monocytes % (Manual) 5, Eosinophils % ( Manual) 2, Basophils % (Manual) 0, Band Neutrophils 0, Platelet Estimate DecreasedL, Platelet Morphology Normal, Hypochromasia 1+, Anisocytosis 1+, Sodium Level 138, Potassium Level 3.3L, Chloride Level 108H, Carbon Dioxide Level 19L, Anion Gap 11, Blood Urea Nitrogen 62H, Creatinine 6.6H, Estimat Glomerular Filtration Rate 8.8, Glucose Level 108H, Calcium Level 8.5 Height (Feet): 5 Height (Inches): 6.00 Weight (Pounds): 191 General Appearance: no apparent distress EENT: PERRL/EOMI Neck: non-tender, normal alignment Cardiovascular: normal rate, regular rhythm, no JVD Respiratory/Chest: chest wall non-tender, lungs clear Abdomen: normal bowel sounds, other - aSCITIS ++ Edema: moderate edema 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
[2018-07-23 11:46] VITALS: BP 139/69
[2018-07-23 16:00] VITALS: BP 128/63
[2018-07-23 20:00] VITALS: BP 140/82
[2018-07-24] VITALS: BP 133/88
[2018-07-24] MEDS ORDERED: traMADol 50mg tab ORAL PRN (01:00)
[2018-07-24 04:00] VITALS: BP 142/77
--- NOTE | 2018-07-24 07:53 | General Progress Note ---
Assessment/Plan Problem List: (1) Alcohol abuse ICD Codes: F10.10 - Alcohol abuse, uncomplicated SNOMED: 28145121 (2) Thrombocytopenia ICD Codes: D69.6 - Thrombocytopenia, unspecified SNOMED: 153635518 (3) Anemia ICD Codes: D64.9 - Anemia, unspecified SNOMED: 998256686 Qualifiers: Qualified Codes: D64.9 - Anemia, unspecified (4) Ascites ICD Codes: R18.8 - Other ascites SNOMED: 991539961 Qualifiers: Qualified Codes: K70.31 - Alcoholic cirrhosis of liver with ascites (5) Coagulopathy ICD Codes: D68.9 - Coagulation defect, unspecified SNOMED: 14240497 (6) Cirrhosis ICD Codes: K74.60 - Unspecified cirrhosis of liver SNOMED: 92049953 Qualifiers: Qualified Codes: K70.31 - Alcoholic cirrhosis of liver with ascites Assessment/Plan Assessment - likely hepatorenal syndrome - acute renal failure is also on differential, but Na<20 x 2 - HRS, likely due to infection/sepsis on presentation - paracentesis as this point not likely helpful (not tender and normal WBC) - EtOH cirrhosis - Ascites - Coagulopathy - worsening - encephalopathy - improved - Grave prognosis - nearly a terminal outcome Recommendations - Agree with DNR - xifaxan - Trental - for component of EtOH hepatitis - Follow closely - HD per Renal -push po Subjective ROS Limited/Unobtainable: No Allergies: Coded Allergies: No Known Allergies (Unverified , 07/15/18) Subjective poor po intake Objective Last 24 Hour Vital Signs Date Time Temp Pulse Resp B/P (MAP) Pulse Ox O2 Delivery O2 Flow Rate FiO2 07/24/18 04:00 97.7 56 18 142/77 (98) 99 97.7 07/24/18 04:00 53 07/24/18 00:00 Room Air 07/24/18 00:00 Room Air 07/24/18 00:00 97.7 54 18 133/88 (103) 98 97.7 07/24/18 00:00 54 07/23/18 20:00 50 07/23/18 20:00 Room Air 07/23/18 20:00 97.7 51 18 140/82 (101) 98 97.7 07/23/18 17:11 128/63 07/23/18 16:00 50 07/23/18 16:00 Room Air 07/23/18 16:00 97.6 56 18 128/63 (84) 97 97.6 07/23/18 12:26 139/69 07/23/18 12:00 Room Air 07/23/18 12:00 54 07/23/18 11:46 97.4 55 18 139/69 (92) 97 97.4 07/23/18 08:40 115/64 07/23/18 08:00 97.5 56 18 115/64 (81) 98 97.5 07/23/18 08:00 62 07/23/18 08:00 Room Air Intake and Output 07/23/18 07/24/18 19:00 07:00 Intake Total 590 ml Balance 590 ml Intake Oral 590 ml # Voids 2 1 # Bowel Movements 1 1 Height (Feet): 5 Height (Inches): 6.00 Weight (Pounds): 187 General Appearance: no apparent distress EENT: normal ENT inspection Neck: supple Cardiovascular: normal rate Respiratory/Chest: decreased breath sounds Abdomen: normal bowel sounds, non tender, soft Extremities: non-tender Chuy Escobar MD Jul 24, 2018 07:53
[2018-07-24 08:00] VITALS: BP 141/73
[2018-07-24] MEDS: Sodium Bicarbonate 650mg Tab ORAL SCH ×3 (08:55→18:00)
[2018-07-24] MEDS: Magnesium Chloride w/Calcium Tab ORAL SCH ×2 (08:55→18:00)
[2018-07-24] MEDS: Thiamine 100mg tab ORAL SCH (08:56)
--- NOTE | 2018-07-24 09:52 | General Progress Note ---
Assessment/Plan Status Narrative 1) JARED 2) HRS 3) Decompensated Cirrhosis Plan: Not a candidate for HD since not a candidate for transplant Subjective Allergies: Coded Allergies: No Known Allergies (Unverified , 07/15/18) Subjective Doing status quo Objective Last 24 Hour Vital Signs Date Time Temp Pulse Resp B/P (MAP) Pulse Ox O2 Delivery O2 Flow Rate FiO2 07/24/18 09:00 Room Air 07/24/18 08:00 64 07/24/18 08:00 98.2 57 20 141/73 (95) 98 98.2 07/24/18 04:00 97.7 56 18 142/77 (98) 99 97.7 07/24/18 04:00 53 07/24/18 00:00 Room Air 07/24/18 00:00 Room Air 07/24/18 00:00 97.7 54 18 133/88 (103) 98 97.7 07/24/18 00:00 54 07/23/18 20:00 50 07/23/18 20:00 Room Air 07/23/18 20:00 97.7 51 18 140/82 (101) 98 97.7 07/23/18 17:11 128/63 07/23/18 16:00 50 07/23/18 16:00 Room Air 07/23/18 16:00 97.6 56 18 128/63 (84) 97 97.6 07/23/18 12:26 139/69 07/23/18 12:00 Room Air 07/23/18 12:00 54 07/23/18 11:46 97.4 55 18 139/69 (92) 97 97.4 Intake and Output 07/23/18 07/24/18 19:00 07:00 Intake Total 590 ml Balance 590 ml Intake Oral 590 ml # Voids 2 1 # Bowel Movements 1 1 Height (Feet): 5 Height (Inches): 6.00 Weight (Pounds): 187 General Appearance: WD/WN, lethargic EENT: PERRL/EOMI Neck: non-tender Cardiovascular: normal peripheral pulses, normal rate Respiratory/Chest: lungs clear Abdomen: normal bowel sounds Extremities: normal range of motion 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
[2018-07-24 12:00] VITALS: BP 131/68
[2018-07-24 12:50] LABS: ANION GAP 10 mmol/L (5-15); BLOOD UREA NITROGEN 64 mg/dL (7-18); CALCIUM 8.1 MG/DL (8.5-10.1); CARBON DIOXIDE 20 MMOL/L (21-32); CHLORIDE 109 MMOL/L (98-107); CREATININE 6.4 MG/DL (0.55-1.30); POTASSIUM 3.5 MMOL/L (3.5-5.1); SODIUM 139 MMOL/L (136-145)
[2018-07-24 12:51] LABS: HEMATOCRIT 23.1 % (42.0-52.0); HEMOGLOBIN 7.4 G/DL (14.2-18.0); MEAN CORPUSCULAR VOLUME 90 FL (80-99); PLATELET COUNT 28 K/UL (150-450); RED BLOOD COUNT 2.56 M/UL (4.70-6.10); RED CELL DISTRIBUTION WIDTH 14.9 % (11.6-14.8); WHITE BLOOD COUNT 4.1 K/UL (4.8-10.8)
[2018-07-24 13:00] LABS: ALANINE AMINOTRANSFERASE 15 U/L (12-78); ALBUMIN 2.5 G/DL (3.4-5.0); ALBUMIN/GLOBULIN RATIO 0.8 (1.0-2.7); ALKALINE PHOSPHATASE 49 U/L (46-116); ASPARTATE AMINO TRANSFERASE 41 U/L (15-37); BILIRUBIN,TOTAL 3.4 MG/DL (0.2-1.0)
[2018-07-24 13:01] LABS: BILIRUBIN,DIRECT 1.9 MG/DL (0.0-0.3)
[2018-07-24 16:00] VITALS: BP 134/74
[2018-07-24 20:00] VITALS: BP 140/76
[2018-07-25] VITALS: BP 129/73
[2018-07-25 04:00] VITALS: BP 147/87
[2018-07-25 08:00] VITALS: BP 153/81
[2018-07-25] MEDS: Magnesium Chloride w/Calcium Tab ORAL SCH ×2 (08:48→17:21)
[2018-07-25] MEDS: Sodium Bicarbonate 650mg Tab ORAL SCH ×3 (08:48→17:21)
[2018-07-25] MEDS: Thiamine 100mg tab ORAL SCH (08:48)
[2018-07-25 12:00] VITALS: BP 129/74
[2018-07-25 16:00] VITALS: BP 144/76
--- NOTE | 2018-07-25 19:32 | General Progress Note ---
Assessment/Plan Problem List: (1) Pyelonephritis ICD Codes: N12 - Tubulo-interstitial nephritis, not specified as acute or chronic SNOMED: 71685980 (2) Alcohol withdrawal ICD Codes: F10.239 - Alcohol dependence with withdrawal, unspecified SNOMED: 949323357 (3) JARED (acute kidney injury) ICD Codes: N17.9 - Acute kidney failure, unspecified SNOMED: 39070772 (4) Cirrhosis ICD Codes: K74.60 - Unspecified cirrhosis of liver SNOMED: 31782608 Qualifiers: Qualified Codes: K70.31 - Alcoholic cirrhosis of liver with ascites (5) Alcohol abuse ICD Codes: F10.10 - Alcohol abuse, uncomplicated SNOMED: 59097966 (6) Thrombocytopenia ICD Codes: D69.6 - Thrombocytopenia, unspecified SNOMED: 436785666 (7) Anemia ICD Codes: D64.9 - Anemia, unspecified SNOMED: 164691040 Qualifiers: Qualified Codes: D64.9 - Anemia, unspecified (8) Ascites ICD Codes: R18.8 - Other ascites SNOMED: 081413307 Qualifiers: Qualified Codes: K70.31 - Alcoholic cirrhosis of liver with ascites (9) Coagulopathy ICD Codes: D68.9 - Coagulation defect, unspecified SNOMED: 11191529 (10) Sepsis ICD Codes: A41.9 - Sepsis, unspecified organism SNOMED: 24867655 (11) E coli bacteremia ICD Codes: R78.81 - Bacteremia SNOMED: 26985950, 235371220677 Assessment/Plan cefzolin per cultures, paracentesis cancel due to thrombocytopenia, avoid fluid overload, high risk mobilize, dc ativan, atn vs hepatorenal very grave prognosis d/w patient dialysis might not improve survival, not a transplant candidate, dc planning, note tolerates anemia Subjective Constitutional: Reports: weakness HEENT: Reports: no symptoms Cardiovascular: Reports: no symptoms Respiratory: Reports: no symptoms Gastrointestinal/Abdominal: Reports: abdomen distended Genitourinary: Reports: no symptoms Neurologic/Psychiatric: Reports: no symptoms Endocrine: Reports: no symptoms Allergies: Coded Allergies: No Known Allergies (Unverified , 07/15/18) Objective Last 24 Hour Vital Signs Date Time Temp Pulse Resp B/P (MAP) Pulse Ox O2 Delivery O2 Flow Rate FiO2 07/25/18 17:21 144/76 07/25/18 16:00 97.7 58 18 144/76 (98) 99 97.7 07/25/18 15:45 58 07/25/18 13:42 129/74 07/25/18 12:00 97.8 59 18 129/74 (92) 97 97.8 07/25/18 11:50 58 07/25/18 08:48 153/81 07/25/18 08:10 Room Air 07/25/18 08:00 97.5 78 18 153/81 (105) 99 97.5 07/25/18 07:37 58 07/25/18 04:00 98.0 66 20 147/87 (107) 97 98.0 07/25/18 03:47 60 07/25/18 00:00 98.1 62 20 129/73 (91) 96 98.1 07/24/18 23:26 59 07/24/18 21:00 Room Air 07/24/18 20:00 98.2 60 21 140/76 (97) 98 98.2 Intake and Output 07/24/18 07/25/18 19:00 07:00 Intake Total 360 ml 60 ml Balance 360 ml 60 ml Intake Oral 360 ml 60 ml # Voids 5 2 Height (Feet): 5 Height (Inches): 6.00 Weight (Pounds): 194 General Appearance: no apparent distress, alert EENT: normal ENT inspection Neck: normal alignment Cardiovascular: normal rate, regular rhythm Respiratory/Chest: lungs clear Abdomen: distended Edema: no edema noted Arm (L), no edema noted Arm (R), no edema noted Leg (L), no edema noted Leg (R), no edema noted Pedal (L), no edema noted Pedal (R), no edema noted 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
[2018-07-25 20:00] VITALS: BP 138/74
--- NOTE | 2018-07-25 22:45 | General Progress Note ---
Assessment/Plan Assessment/Plan Assessment - Hepatorenal syndrome - renal failure - HRS, likely due to infection/sepsis on presentation - paracentesis as this point not likely helpful (not tender and normal WBC) - EtOH cirrhosis - Ascites - Coagulopathy - encephalopathy - resolved, currently off Rx Recommendations - recheck NH3 - recheck U/A - Trental - for component of EtOH hepatitis - Renal f/u - consider transfer to nearby liver transplant center - d/c tylenol Subjective Allergies: Coded Allergies: No Known Allergies (Unverified , 07/15/18) Subjective Feels same able to tolerate PO d/w patient and family re terminal prognosis Objective Last 24 Hour Vital Signs Date Time Temp Pulse Resp B/P (MAP) Pulse Ox O2 Delivery O2 Flow Rate FiO2 07/25/18 21:00 Room Air 07/25/18 20:00 97.9 61 20 138/74 (95) 96 97.9 07/25/18 17:21 144/76 07/25/18 16:00 97.7 58 18 144/76 (98) 99 97.7 07/25/18 15:45 58 07/25/18 13:42 129/74 07/25/18 12:00 97.8 59 18 129/74 (92) 97 97.8 07/25/18 11:50 58 07/25/18 08:48 153/81 07/25/18 08:10 Room Air 07/25/18 08:00 97.5 78 18 153/81 (105) 99 97.5 07/25/18 07:37 58 07/25/18 04:00 98.0 66 20 147/87 (107) 97 98.0 07/25/18 03:47 60 07/25/18 00:00 98.1 62 20 129/73 (91) 96 98.1 07/24/18 23:26 59 Intake and Output 07/24/18 07/25/18 19:00 07:00 Intake Total 360 ml 60 ml Balance 360 ml 60 ml Intake Oral 360 ml 60 ml # Voids 5 2 Height (Feet): 5 Height (Inches): 6.00 Weight (Pounds): 194 Objective man in chair distended abdomen NCAT supple CTA RRR abd distended, non tender trace edema neuro: interactive Armando Junior MD Jul 25, 2018 22:45
[2018-07-26] VITALS: BP 148/71
[2018-07-26 06:00] VITALS: BP 156/80
[2018-07-26 08:00] VITALS: BP 131/79
[2018-07-26 08:10] LABS: HEMATOCRIT 22.8 % (42.0-52.0); HEMOGLOBIN 7.3 G/DL (14.2-18.0); MEAN CORPUSCULAR VOLUME 92 FL (80-99); PLATELET COUNT 26 K/UL (150-450); RED BLOOD COUNT 2.49 M/UL (4.70-6.10); RED CELL DISTRIBUTION WIDTH 15.3 % (11.6-14.8); WHITE BLOOD COUNT 3.2 K/UL (4.8-10.8)
[2018-07-26] MEDS: Sodium Bicarbonate 650mg Tab ORAL SCH ×3 (08:20→17:32)
[2018-07-26] MEDS: Magnesium Chloride w/Calcium Tab ORAL SCH ×2 (08:20→17:32)
[2018-07-26] MEDS: Thiamine 100mg tab ORAL SCH (08:20)
[2018-07-26 08:28] LABS: AMMONIA 91 umol/L (11-32)
[2018-07-26 08:35] LABS: ALANINE AMINOTRANSFERASE 17 U/L (12-78); ALBUMIN 2.6 G/DL (3.4-5.0); ALBUMIN/GLOBULIN RATIO 0.7 (1.0-2.7); ALKALINE PHOSPHATASE 56 U/L (46-116); ANION GAP 11 mmol/L (5-15); ASPARTATE AMINO TRANSFERASE 40 U/L (15-37); BILIRUBIN,TOTAL 2.5 MG/DL (0.2-1.0); BLOOD UREA NITROGEN 65 mg/dL (7-18); CALCIUM 8.3 MG/DL (8.5-10.1); CARBON DIOXIDE 20 MMOL/L (21-32); CHLORIDE 110 MMOL/L (98-107); CREATININE 6.3 MG/DL (0.55-1.30); POTASSIUM 3.6 MMOL/L (3.5-5.1); SODIUM 141 MMOL/L (136-145)
[2018-07-26 08:36] LABS: BILIRUBIN,DIRECT 1.3 MG/DL (0.0-0.3)
[2018-07-26 12:00] VITALS: BP 141/76
[2018-07-26 16:00] VITALS: BP 141/70
[2018-07-26 17:33] VITALS: BP 141/70
--- NOTE | 2018-07-26 22:28 | General Progress Note ---
Assessment/Plan Assessment/Plan Assessment - Hepatorenal syndrome - renal failure - HRS, likely due to infection/sepsis on presentation - paracentesis as this point not likely helpful (not tender and normal WBC) - EtOH cirrhosis - Ascites - Coagulopathy - encephalopathy Recommendations - [place] - for component of EtOH hepatitis - Renal f/u - patient advised to f/u with [facility] Subjective Allergies: Coded Allergies: No Known Allergies (Unverified , 07/15/18) Subjective Seen this am prior to d/c Feels same d/w PMD re patient poor prognosis patient advised to f/u at [facility] Objective Last 24 Hour Vital Signs Date Time Temp Pulse Resp B/P (MAP) Pulse Ox O2 Delivery O2 Flow Rate FiO2 07/26/18 17:33 141/70 07/26/18 16:00 97.2 20 141/70 (93) 96 97.2 07/26/18 12:15 141/76 07/26/18 12:00 98.6 20 141/76 (97) 96 98.6 07/26/18 12:00 72 07/26/18 09:00 Room Air 07/26/18 08:23 131/79 07/26/18 08:00 53 07/26/18 08:00 97.3 63 20 131/79 (96) 96 97.3 07/26/18 06:00 97.9 63 20 156/80 (105) 97.9 07/26/18 03:54 54 07/26/18 00:00 97.5 65 20 148/71 (96) 96 97.5 07/25/18 23:32 58 Intake and Output 07/25/18 07/26/18 19:00 07:00 Intake Total 420 ml Output Total 500 ml Balance -80 ml Intake Oral 420 ml Output Urine Total 500 ml # Voids 2 Laboratory Tests 07/26/18 07:50: White Blood Count 3.2L, Red Blood Count 2.49L, Hemoglobin 7.3L, Hematocrit 22.8L , Mean Corpuscular Volume 92, Mean Corpuscular Hemoglobin 29.4, Mean Corpuscular Hemoglobin Concent 32.1, Red Cell Distribution Width 15.3H, Platelet Count 26L, Mean Platelet Volume 7.4, Neutrophils (%) (Auto) , Lymphocytes (%) (Auto) , Monocytes (%) (Auto) , Eosinophils (%) (Auto) , Basophils (%) (Auto) , Differential Total Cells Counted 100, Neutrophils % ( Manual) 69, Lymphocytes % (Manual) 19L, Monocytes % (Manual) 9, Eosinophils % ( Manual) 3, Basophils % (Manual) 0, Band Neutrophils 0, Platelet Estimate DecreasedL, Platelet Morphology Normal, Hypochromasia 3+, Anisocytosis 1+, Spherocytes 1+, Sodium Level 141, Potassium Level 3.6, Chloride Level 110H, Carbon Dioxide Level 20L, Anion Gap 11, Blood Urea Nitrogen 65H, Creatinine 6.3H , Estimat Glomerular Filtration Rate 9.2, Glucose Level 111H, Calcium Level 8.3L , Total Bilirubin 2.5H, Direct Bilirubin 1.3H, Aspartate Amino Transf (AST/SGOT ) 40H, Alanine Aminotransferase (ALT/SGPT) 17, Alkaline Phosphatase 56, Ammonia 91H, Total Protein 6.2L, Albumin 2.6L, Globulin 3.6, Albumin/Globulin Ratio 0.7L Height (Feet): 5 Height (Inches): 6.00 Weight (Pounds): 197 Objective man in chair distended abdomen NCAT supple CTA RRR abd distended, non tender trace edema neuro: interactive Armando Junior MD Jul 26, 2018 22:28
--- NOTE | 2018-07-27 05:45 | Discharge Summary ---
DATE OF ADMISSION: 07/15/2018 DATE OF DISCHARGE: 07/26/2018 PERTINENT HISTORY: The patient is a heavy alcohol drinker presents with ascites, abdominal pain, and abnormal laboratories. PERTINENT PHYSICAL FINDINGS: See the dictated History and Physical. HEENT: Oral mucosa slightly dry. LUNGS: Clear. HEART: Regular rhythm. ABDOMEN: Moderate ascites. No focal tenderness. EXTREMITIES: Show trace to 1+ edema. NEUROLOGIC: He is alert and responsive. No focal findings. There is some moderate tremor. COURSE IN THE HOSPITAL: The patient was observed, found to have leukocytosis, and was started on empiric antibiotics. He had urinary tract infection and blood cultures positive for E coli and antibiotics are switched to cefazolin when the culture ____. He developed acute kidney injury likely on top of chronic kidney injury and possible hepatorenal syndrome. He was able to make urine and maintain euvolemia except for the ascites. Paracentesis was stopped due to severe thrombocytopenia and sepsis. His leukocytosis improved. He was anemic and received blood transfusion. He wished no CPR. Discussions were made and it is felt that dialysis would not improve his longevity or quality of life. After detailed discussion and involvement of case management, he was discharged home in stable condition, but with a very poor prognosis. FINAL DIAGNOSES: 1. E. coli bacteremia. 2. Pyelonephritis with E. coli. 3. Cirrhosis, end-stage, alcoholic. 4. Pancytopenia secondary to cirrhosis. 5. Acute kidney injury, likely hepatorenal versus acute tubular necrosis. 6. Ascites. 7. Alcohol withdrawal syndrome, improved. DISCHARGE DISPOSITION: Home on a low-salt diet. No medications are indicated at this time. Grave prognosis, the patient and family are aware. Ed Puente M.D. DR: Fabian JOB#: [id number] CC:
== END 2018-07-26 18:30 | disposition home or self-care (01) | DRG 720 ==
LOC: EDBD 19:06 → EMR 19:25 → 4E 19:42 → EDBEDREQ 20:07 → 2W 07-16 18:30 → 4W 07-17 16:45 → 2W 07-17 17:50 → 2E 07-24 01:35
PROC: 30233N1 Transfusion of Nonautologous Red Blood Cells into Peripheral Vein, Percutaneous Approach (ICD-10-PCS; principal; 2018-07-16)
DX: A41.9 Sepsis, unspecified organism (principal); K76.7 Hepatorenal syndrome; D61.818 Other pancytopenia; N17.9 Acute kidney failure, unspecified; N12 Tubulo-interstitial nephritis, not specified as acute or chronic; K70.31 Alcoholic cirrhosis of liver with ascites; B96.20 Unspecified Escherichia coli [E. coli] as the cause of diseases classified elsewhere; N18.9 Chronic kidney disease, unspecified; F10.239 Alcohol dependence with withdrawal, unspecified; K72.90 Hepatic failure, unspecified without coma; F17.200 Nicotine dependence, unspecified, uncomplicated; D68.4 Acquired coagulation factor deficiency; Z66 Do not resuscitate; E87.6 Hypokalemia
CPT/HCPCS: 36415; 71045; 76700; 80048; 80053; 80307; 80329; 81003; 82140; 82150; 82248; 82270; 82550; 82570; 83605; 83690; 83735; 84300; 84443; 84484; 85007; 85025; 85610; 85730; 86850; 86900; 86901; 86920; 87040; 87086; 87181; 93005; 99285; J2405; J8499